=== PATIENT | male | born 1970 | race Caucasian/White ===

== ENCOUNTER 2021-07-28 07:52 | Outpatient (REF) | payer BC, SELFPAY ==
[2021-07-28 08:10] LABS: MANUAL DIFF FLAG NO
[2021-07-28 08:33] LABS: Basophils Percent Auto 0.7 % (0-2); Eosinophils Absolute Auto 0.1 X10*3/uL (0.0-0.4); Eosinophils Percent Auto 1.8 % (0-4); Hemoglobin 14.5 g/dl (14.0-18.0); Imm Gran Abs Auto 0.02 X10*3/uL (0.00-0.03); Imm Gran Pct Auto 0.5 % (0.0-0.4); Lymphocytes Percent Auto 23.3 % (20-40); Mean Corpuscular Hemoglobin 30.3 pg (27.0-33.0); Mean Corpuscular Volume 91.9 fL (80.0-98.0); Mean Platelet Volume 9.4 fL (9.4-12.4); Monocytes Absolute Auto 0.4 X10*3/uL (0.1-1.2); Monocytes Percent Auto 9.9 % (2-11); Neutrophils Absolute Auto 2.8 x10*3/uL (2.0-8.3); Neutrophils Percent Auto 63.8 % (45-73); Platelet Count 191 X10*3/uL (160-400); Red Blood Count 4.79 X10*6/uL (4.60-5.80); White Blood Count 4.3 X10*3/uL (4.8-10.8)
[2021-07-28 09:10] LABS: Alanine Aminotransferase 37 U/L (0-40); Albumin Level 4.1 g/dL (3.5-5.0); Alkaline Phosphatase 82 U/L (39-117); Anion Gap 10 (12-20); Aspartate Amino Transferase 23 U/L (5-37); Bilirubin Total 0.4 mg/dL (0.0-1.0); Blood Urea Nitrogen 20 mg/dL (9-16); Calcium 9.1 mg/dL (8.4-10.2); Carbon Dioxide 30 mmol/L (22-29); Chloride 108 mmol/L (96-108); Cholesterol 135 mg/dL; Estimated Glomerular Filt Rate > 60; Glucose Fasting 104 mg/dL (60-99); HDL Cholesterol 36 mg/dL; LDL Cholesterol Calculated 85 mg/dl; Potassium 4.7 mmol/L (3.3-5.1); Sodium 143 mmol/L (135-145); Total Protein 6.3 g/dL (6.5-8.0); Triglycerides 71 mg/dL
[2021-07-28 09:31] LABS: PSA,Total (Free>4and<10) 0.37 ng/mL (0.00-4.00); Thyroid Stimulating Hormone 2.08 uIU/mL (0.32-4.0); Vitamin D 25-OH Total 55.1 ng/mL (>30)
== END 2021-07-28 07:53 | disposition home or self-care (01) ==
LOC: HO.LAB 07:52
PROVIDERS: PCP Internal Medicine; Visit Provider Internal Medicine
DX: Z00.00 Encounter for general adult medical examination without abnormal findings (principal); I25.10 Atherosclerotic heart disease of native coronary artery without angina pectoris; I10 Essential (primary) hypertension; E78.00 Pure hypercholesterolemia, unspecified; J45.40 Moderate persistent asthma, uncomplicated; Z12.5 Encounter for screening for malignant neoplasm of prostate
CPT/HCPCS: 36415; 80053; 80061; 82306; 84153; 84443; 85025

== ENCOUNTER 2022-05-07 13:48 | Outpatient (REF) | payer BC, SELFPAY | END 2022-05-07 13:49 | disposition home or self-care (01) | LOC: HO.LAB 13:48 | PROVIDERS: PCP Internal Medicine; Visit Provider Internal Medicine | DX: Z13.89 Encounter for screening for other disorder (principal) ==

== ENCOUNTER 2022-07-30 08:19 | Outpatient (REF) | payer BC, SELFPAY ==
[2022-07-30 08:36] LABS: MANUAL DIFF FLAG NO
[2022-07-30 09:08] LABS: Basophils Percent Auto 0.4 % (0-2); Eosinophils Absolute Auto 0.2 X10*3/uL (0.0-0.4); Eosinophils Percent Auto 3.5 % (0-4); Hematocrit 42.5 % (42.0-52.0); Hemoglobin 14.7 g/dl (14.0-18.0); Imm Gran Abs Auto 0.01 X10*3/uL (0.00-0.03); Imm Gran Pct Auto 0.2 % (0.0-0.4); Lymphocytes Absolute Auto 1.2 X10*3/uL (1.2-4.9); Mean Corpuscular HGB Conc 34.6 g/dl (31.0-36.0); Mean Corpuscular Hemoglobin 31.5 pg (27.0-33.0); Mean Platelet Volume 9.6 fL (9.4-12.4); Monocytes Absolute Auto 0.4 X10*3/uL (0.1-1.2); Monocytes Percent Auto 8.2 % (2-11); Neutrophils Absolute Auto 2.9 x10*3/uL (2.0-8.3); Neutrophils Percent Auto 61.7 % (45-73); Platelet Count 181 X10*3/uL (160-400); Red Blood Count 4.67 X10*6/uL (4.60-5.80); Red Cell Distribution Width 12.3 % (11.0-16.0); White Blood Count 4.6 X10*3/uL (4.8-10.8)
[2022-07-30 09:20] LABS: Cholesterol 147 mg/dL; HDL Cholesterol 39 mg/dL; LDL Cholesterol Calculated 91 mg/dl; Triglycerides 87 mg/dL
[2022-07-30 09:30] LABS: Alanine Aminotransferase 49 U/L (0-40); Alkaline Phosphatase 91 U/L (39-117); Anion Gap 15 (12-20); Aspartate Amino Transferase 32 U/L (5-37); Bilirubin Total 0.6 mg/dL (0.0-1.0); Blood Urea Nitrogen 17 mg/dL (9-16); Calcium 9.1 mg/dL (8.4-10.2); Carbon Dioxide 26 mmol/L (22-29); Chloride 106 mmol/L (96-108); Estimated Glomerular Filt Rate > 60; Glucose Fasting 107 mg/dL (60-99); Potassium 4.6 mmol/L (3.3-5.1); Sodium 142 mmol/L (135-145); Total Protein 6.5 g/dL (6.5-8.0)
[2022-07-30 09:43] LABS: Thyroid Stimulating Hormone 2.13 uIU/mL (0.32-4.0); Vitamin D 25-OH Total 28.8 ng/mL (>30)
== END 2022-07-30 08:20 | disposition home or self-care (01) ==
LOC: HO.LAB 08:19
PROVIDERS: Absent Provider Nurse Practitioner; PCP Internal Medicine; Visit Provider Internal Medicine
DX: I25.118 Atherosclerotic heart disease of native coronary artery with other forms of angina pectoris (principal); J45.40 Moderate persistent asthma, uncomplicated; E55.9 Vitamin D deficiency, unspecified; K21.9 Gastro-esophageal reflux disease without esophagitis; E78.00 Pure hypercholesterolemia, unspecified; I10 Essential (primary) hypertension
CPT/HCPCS: 36415; 80053; 80061; 82306; 84443; 85025

== ENCOUNTER 2022-10-05 07:38 | Day surgery (SDC) | payer BC, SELFPAY ==
--- NOTE | 2022-10-04 10:33 | HO.ANESPROP2 ---
Documented by User: Yuliana Leon NP 10/04/22 12:03 HPI - Anesthesia Eval Consult details Narrative: 52yo M for Colonoscopy Pt denies any recent CP/SOB with >4 mets. CAD s/p stent 2020. Stable [facility] Past Medical History Medical History (Updated 10/04/22 @ 06:34 by Taylor Plaza RN) Asthma CAD (coronary artery disease) Cervical disc disease COPD (chronic obstructive pulmonary disease) Elevated cholesterol GERD (gastroesophageal reflux disease) Paralyzed hemidiaphragm Surgical History Surgical History (Updated 10/04/22 @ 06:35 by Taylor Plaza RN) History of lobectomy of lung Hx of appendectomy Hx of colonoscopy Hx of heart artery stent Hx of myringotomy Social History Social History Patient Tobacco Use Status: Former Tobacco user Quit Date: quit 22 years ago Use of substances other than those prescribed or required for medical reasons: No Are you DNR?: No Advance Directives: No Advance Directives Information Provided: Yes Meds Allergies Allergy/AdvReac Type Severity Reaction Status Date / Time morphine Allergy Unknown Verified 09/06/14 00:00 Home Medications Medication Instructions Recorded Confirmed Last Taken Type albuterol sulfate 90 mcg/actuation 2 puff inhalation Q4-6H PRN 10/04/22 10/04/22 Unknown History aerosol inhaler Shortness Of Breath Or Wheezing ascorbic acid (vitamin C) 125 mg 125 mg PO DAILY 10/04/22 10/04/22 Unknown History chewable tablet (Vitamin C) aspirin 81 mg tablet 81 mg PO DAILY 10/04/22 10/04/22 Unknown History atorvastatin 40 mg tablet 1 tab PO DAILY 10/04/22 10/04/22 Unknown History budesonide-formoterol HFA 80 2 puff inhalation BID 10/04/22 10/04/22 Unknown History mcg-4.5 mcg/actuation aerosol inhaler (Symbicort) famotidine 20 mg tablet 1 tab PO BID 10/04/22 10/04/22 Unknown History fluticasone fur. 100 mcg-umeclid 1 puff inhalation DAILY 10/04/22 10/04/22 Unknown History 62.5 mcg-vilant 25 mcg inhalat.powder (Trelegy Ellipta) ibuprofen 800 mg tablet 1 cap PO TID PRN Pain 10/04/22 10/04/22 Unknown History isosorbide mononitrate 30 mg 1 tab PO DAILY 10/04/22 10/04/22 Unknown History tablet,extended release 24 hr lisinopril 10 mg tablet 1 tab PO DAILY 10/04/22 10/04/22 Unknown History btanrzap-epvrzjcdt-wnqlhqjce 3.5 5 drp otic (ears) BID 10/04/22 10/04/22 Unknown History mg/mL-10,000 unit/mL-1 % ear solution omeprazole 20 mg capsule,delayed 1 cap PO DAILY 10/04/22 10/04/22 Unknown History release tiotropium bromide 2.5 2 puff inhalation DAILY 10/04/22 10/04/22 Unknown History mcg/actuation mist for inhalation (Spiriva Respimat) Exam Exam Date and Time: October 04, 2022 1033 Pertinent Lab Results Pertinent Lab Results: Laboratory Tests 07/30/22 07/30/22 08:33 08:33 WBC 4.6 L Hgb 14.7 Hct 42.5 Plt Count 181 Sodium 142 Potassium 4.6 Chloride 106 Carbon Dioxide 26 BUN 17 H Creatinine 0.92 Assessment and Plan Assessment Anesthesia Assessment: Chart Reviewed Documented by User: Lilian Stewart MD 10/05/22 08:31 [facility] Past Medical History Medical History (Updated 10/04/22 @ 06:34 by Taylor Plaza RN) Asthma CAD (coronary artery disease) Cervical disc disease COPD (chronic obstructive pulmonary disease) Elevated cholesterol GERD (gastroesophageal reflux disease) Paralyzed hemidiaphragm Family History Family history of problems with anesthesia: No Surgical History Surgical History (Updated 10/04/22 @ 06:35 by Taylor Plaza RN) History of lobectomy of lung Hx of appendectomy Hx of colonoscopy Hx of heart artery stent Hx of myringotomy History of Problems with Anesthesia: No Social History Social History Patient Tobacco Use Status: Former Tobacco user Quit Date: quit 22 years ago Use of substances other than those prescribed or required for medical reasons: No Are you DNR?: No Advance Directives: No Advance Directives Information Provided: Yes Meds Allergies Allergy/AdvReac Type Severity Reaction Status Date / Time morphine Allergy Unknown Verified 09/06/14 00:00 Home Medications Medication Instructions Recorded Confirmed Last Taken Type albuterol sulfate 90 mcg/actuation 2 puff inhalation Q4-6H PRN 10/04/22 10/04/22 Unknown History aerosol inhaler Shortness Of Breath Or Wheezing ascorbic acid (vitamin C) 125 mg 125 mg PO DAILY 10/04/22 10/04/22 Unknown History chewable tablet (Vitamin C) aspirin 81 mg tablet 81 mg PO DAILY 10/04/22 10/04/22 Unknown History atorvastatin 40 mg tablet 1 tab PO DAILY 10/04/22 10/04/22 Unknown History budesonide-formoterol HFA 80 2 puff inhalation BID 10/04/22 10/04/22 Unknown History mcg-4.5 mcg/actuation aerosol inhaler (Symbicort) famotidine 20 mg tablet 1 tab PO BID 10/04/22 10/04/22 Unknown History fluticasone fur. 100 mcg-umeclid 1 puff inhalation DAILY 10/04/22 10/04/22 Unknown History 62.5 mcg-vilant 25 mcg inhalat.powder (Trelegy Ellipta) ibuprofen 800 mg tablet 1 cap PO TID PRN Pain 10/04/22 10/04/22 Unknown History isosorbide mononitrate 30 mg 1 tab PO DAILY 10/04/22 10/04/22 Unknown History tablet,extended release 24 hr lisinopril 10 mg tablet 1 tab PO DAILY 10/04/22 10/04/22 Unknown History nqnqqape-lidjflprw-ocqlrbvha 3.5 5 drp otic (ears) BID 10/04/22 10/04/22 Unknown History mg/mL-10,000 unit/mL-1 % ear solution omeprazole 20 mg capsule,delayed 1 cap PO DAILY 10/04/22 10/04/22 Unknown History release tiotropium bromide 2.5 2 puff inhalation DAILY 10/04/22 10/04/22 Unknown History mcg/actuation mist for inhalation (Spiriva Respimat) Exam Airway Mallampati Class: II TM Dist: >3cm Neck ROM: Full Heart: rrr Lungs: cta Assessment and Plan Assessment Anesthesia Assessment: Anesthesia Plan Discussed Final Anesthetic Review Family History of Problems with Anesthesia: No History of Problems with Anesthesia: No NPO: Yes ASA Class: III Final Preanesthetic Review: No Changes in Pt Med Stat, Meds/Allgs Chart Reviewed, Consent Obtained/Reviewed and Anes Risks/Benef Reviewed Patient Risk: Low Procedure Risk: Low Anesthetic Plan Anesthetic Plan: MAC: and Agree w/ Assess. and Plan Disposition: Standard PACU
[2022-10-05 07:55] VITALS: BMI 36.5
[2022-10-05 08:29] VITALS: BP 121/77; PULSE 79; RESP 18; TEMP 36.3; O2SAT 95
[2022-10-05] MEDS: Lactated Ringers 1,000 ML 100 ML IVCONT (08:38)
--- NOTE | 2022-10-05 08:41 | MHC.SHP ---
Pre-Procedural Eval Section A Date of Service: 10/05/22 Section B Chief Complaint: Change in bowel habit Details of Present Illness: see H&P no changes Relevant Family History (Specify if Yes): No Relevant Social History: None Present Medications: see Short Stay Collaborative assessment Medical History: No relevant PMH History of Previous Operations: No relevant previous surgery Allergies: Allergies Allergy/AdvReac Type Severity Reaction Status Date / Time morphine Allergy Unknown Verified 09/06/14 00:00 Review of Systems Sugical H&P ROS: Negative: Constitution, Cardiovascular, Respiratory, Neurological, Psychiatric, Hem-Onc, Allergic/Immunologic, Gastrointestinal, Genitourinary, Musculoskeletal, Integumentary, Endocrine and Eyes/Ears/Nose/Throat Exam Surgical H&P Exam: Normal: HEENT, Normal: Heart, Normal: Lungs, Normal: Extremities, Normal: Abdomen, Normal: Skin and Normal: Neurological Plan Diagnosis/Plan: Unchanged I have reviewed the history and physical and performed a pertinent physical examination on my patient. No changes have occurred unless specified. Time Spent With Patient Time: Total time managing care of this patient today ____ minutes.
--- NOTE | 2022-10-05 09:18 | PM.OP ---
Brief Operative Note Date of Service: 10/05/22 Pre-op diagnosis: change in bowels Post-op diagnosis: same Procedure: colonoscopy Surgeon: Juan Herrera Anesthesia: MAC Was an Seat Covers Trimmer used for this Procedure?: No Estimated blood loss (mL): 2 Pathology: other Condition: stable Disposition: PACU
[2022-10-05 09:19] VITALS: BP 97/56; PULSE 78; RESP 18; TEMP 36.8; O2SAT 99
[2022-10-05 09:34] VITALS: BP 132/86; PULSE 72; RESP 16; TEMP 36.8; O2SAT 93
--- NOTE | 2022-10-05 09:38 | OP_ITS ---
SURGEON: Juan Herrera MD INDICATIONS: Change in bowel habits. PREOPERATIVE DIAGNOSIS: POSTOPERATIVE DIAGNOSIS: PROCEDURE PERFORMED: Colonoscopy to the terminal ileum with biopsy. ESTIMATED BLOOD LOSS: COMPLICATIONS: ANESTHESIA: Monitored anesthesia care. ASSISTANTS: SPECIMENS: DESCRIPTION OF PROCEDURE: Date: 10/05/22. A history and physical was performed. The risks and benefits of the procedure were explained to the patient. Informed consent was obtained. The patient was placed in the left lateral decubitus position. A digital rectal exam was performed and was found to be normal. The Olympus pediatric video colonoscope was introduced into the rectum and advanced to the cecum. The cecum was identified by transillumination, palpation, and identification of ileocecal valve. Examination was performed. The scope was removed. He tolerated the procedure well and was returned to the recovery in stable condition. FINDINGS: The terminal ileum was normal. The visualized colonic mucosa was normal. The quality of prep was good. Random sigmoid biopsies were obtained because of the patient's change in bowel habits. No colitis was identified. Retroflexed examination showed small internal hemorrhoids. IMPRESSION: Normal colonoscopy. RECOMMENDATION: 1. Follow up biopsy results. 2. Repeat colonoscopy is recommended in 10 years for average risk individuals. MD GRACIELA Balderrama/FLOYD / [id number] MTDD
[2022-10-05 09:48] VITALS: BP 139/85; PULSE 68; RESP 16; TEMP 36.8; O2SAT 95
== END 2022-10-05 10:15 | disposition home or self-care (01) ==
PROVIDERS: PCP Internal Medicine; Visit Provider Internal Medicine Gastroenterology
PROC: 0DJD8ZZ Inspection of Lower Intestinal Tract, Via Natural or Artificial Opening Endoscopic (ICD-10-PCS; CPT 45378; principal; 2022-10-05 08:50)
DX: R19.4 Change in bowel habit (principal); K64.8 Other hemorrhoids; K21.9 Gastro-esophageal reflux disease without esophagitis; E78.00 Pure hypercholesterolemia, unspecified; J44.9 Chronic obstructive pulmonary disease, unspecified; I25.10 Atherosclerotic heart disease of native coronary artery without angina pectoris; Z98.61 Coronary angioplasty status; Z79.51 Long term (current) use of inhaled steroids; Z79.899 Other long term (current) drug therapy; Z88.8 Allergy status to other drugs, medicaments and biological substances; Z98.890 Other specified postprocedural states; Z87.891 Personal history of nicotine dependence
CPT/HCPCS: 45380; 88305

== ENCOUNTER 2023-06-29 08:36 | Outpatient (REF) | payer BC, SELFPAY | END 2023-06-29 08:37 | disposition home or self-care (01) | LOC: HO.LAB 08:36 | PROVIDERS: PCP Internal Medicine; Visit Provider Internal Medicine | DX: K58.0 Irritable bowel syndrome with diarrhea (principal); K21.9 Gastro-esophageal reflux disease without esophagitis; I25.10 Atherosclerotic heart disease of native coronary artery without angina pectoris; I10 Essential (primary) hypertension; E78.00 Pure hypercholesterolemia, unspecified | CPT/HCPCS: 36415; 80061; 82947; 85025 ==

== ENCOUNTER 2024-02-14 06:16 | Outpatient (REF) | payer BC, SELFPAY ==
[2024-02-14 06:25] LABS: MANUAL DIFF FLAG NO
[2024-02-14 07:43] LABS: Basophils Percent Auto 0.6 % (0-2); Eosinophils Absolute Auto 0.1 X10*3/uL (0.0-0.4); Eosinophils Percent Auto 2.5 % (0-4); Hematocrit 41.4 % (42.0-52.0); Imm Gran Abs Auto 0.02 X10*3/uL (0.00-0.03); Imm Gran Pct Auto 0.4 % (0.0-0.4); Lymphocytes Absolute Auto 1.5 X10*3/uL (1.2-4.9); Lymphocytes Percent Auto 28.4 % (20-40); Mean Corpuscular HGB Conc 33.8 g/dl (31.0-36.0); Mean Corpuscular Hemoglobin 31.3 pg (27.0-33.0); Mean Corpuscular Volume 92.4 fL (80.0-98.0); Mean Platelet Volume 9.8 fL (9.4-12.4); Monocytes Absolute Auto 0.5 X10*3/uL (0.1-1.2); Monocytes Percent Auto 9.4 % (2-11); Neutrophils Absolute Auto 3.1 x10*3/uL (2.0-8.3); Neutrophils Percent Auto 58.7 % (45-73); Platelet Count 196 X10*3/uL (160-400); Red Blood Count 4.48 X10*6/uL (4.60-5.80); Red Cell Distribution Width 12.6 % (11.0-16.0); White Blood Count 5.2 X10*3/uL (4.8-10.8)
[2024-02-14 08:18] LABS: Alanine Aminotransferase 51 U/L (0-40); Albumin Level 3.9 g/dL (3.5-5.0); Alkaline Phosphatase 69 U/L (39-117); Anion Gap 12 (12-20); Aspartate Amino Transferase 31 U/L (5-37); Bilirubin Total 0.3 mg/dL (0.0-1.0); Blood Urea Nitrogen 16 mg/dL (9-16); Calcium 9.3 mg/dL (8.4-10.2); Carbon Dioxide 28 mmol/L (22-29); Chloride 107 mmol/L (96-108); Cholesterol 119 mg/dL (<200); Estimated Glomerular Filt Rate > 60; Glucose Fasting 118 mg/dL (60-99); HDL Cholesterol 33 mg/dL (>40); LDL Cholesterol Calculated 63 mg/dL (<100); Sodium 143 mmol/L (135-145); Total Protein 6.6 g/dL (6.5-8.0); Triglycerides 117 mg/dL (<150)
== END 2024-02-14 06:17 | disposition home or self-care (01) ==
LOC: HO.LAB 06:16
PROVIDERS: PCP Internal Medicine; Visit Provider Internal Medicine
DX: I25.10 Atherosclerotic heart disease of native coronary artery without angina pectoris (principal); I10 Essential (primary) hypertension; E78.00 Pure hypercholesterolemia, unspecified
CPT/HCPCS: 36415; 80053; 80061; 85025

== ENCOUNTER 2024-08-25 06:53 | Outpatient (REF) | payer BC, SELFPAY ==
[2024-08-25 07:09] LABS: MANUAL DIFF FLAG NO
[2024-08-25 07:34] LABS: Basophils Percent Auto 0.4 % (0-2); Eosinophils Absolute Auto 0.2 X10*3/uL (0.0-0.4); Eosinophils Percent Auto 3.3 % (0-4); Hematocrit 42.3 % (42.0-52.0); Hemoglobin 14.1 g/dl (14.0-18.0); Imm Gran Abs Auto 0.02 X10*3/uL (0.00-0.03); Imm Gran Pct Auto 0.4 % (0.0-0.4); Lymphocytes Absolute Auto 1.1 X10*3/uL (1.2-4.9); Lymphocytes Percent Auto 24.1 % (20-40); Mean Corpuscular HGB Conc 33.3 g/dl (31.0-36.0); Mean Corpuscular Hemoglobin 30.2 pg (27.0-33.0); Mean Corpuscular Volume 90.6 fL (80.0-98.0); Mean Platelet Volume 9.5 fL (9.4-12.4); Monocytes Absolute Auto 0.4 X10*3/uL (0.1-1.2); Monocytes Percent Auto 8.6 % (2-11); Neutrophils Absolute Auto 2.9 x10*3/uL (2.0-8.3); Neutrophils Percent Auto 63.2 % (45-73); Platelet Count 183 X10*3/uL (160-400); Red Blood Count 4.67 X10*6/uL (4.60-5.80); Red Cell Distribution Width 12.6 % (11.0-16.0); White Blood Count 4.5 X10*3/uL (4.8-10.8)
[2024-08-25 08:02] LABS: Alanine Aminotransferase 63 U/L (0-40); Alkaline Phosphatase 75 U/L (39-117); Anion Gap 12 (12-20); Aspartate Amino Transferase 45 U/L (5-37); Bilirubin Total 0.4 mg/dL (0.0-1.0); Blood Urea Nitrogen 16 mg/dL (9-16); Calcium 9.5 mg/dL (8.4-10.2); Carbon Dioxide 27 mmol/L (22-29); Chloride 107 mmol/L (96-108); Cholesterol 123 mg/dL (<200); Estimated Glomerular Filt Rate > 60; Glucose Fasting 113 mg/dL (60-99); HDL Cholesterol 39 mg/dL (>40); LDL Cholesterol Calculated 53 mg/dL (<100); Potassium 4.1 mmol/L (3.3-5.1); Sodium 142 mmol/L (135-145); Total Protein 6.6 g/dL (6.5-8.0); Triglycerides 159 mg/dL (<150)
[2024-08-25 08:16] LABS: PSA,Total (Free>4and<10) 0.37 ng/mL (0.00-4.00)
[2024-08-25 08:18] LABS: Thyroid Stimulating Hormone 3.91 uIU/mL (0.32-4.0)
== END 2024-08-25 06:54 | disposition home or self-care (01) ==
LOC: HO.LAB 06:53
PROVIDERS: PCP Internal Medicine; Referring Provider Nurse Practitioner Family; Visit Provider Internal Medicine
DX: Z00.00 Encounter for general adult medical examination without abnormal findings (principal); I25.10 Atherosclerotic heart disease of native coronary artery without angina pectoris; I48.0 Paroxysmal atrial fibrillation; E78.00 Pure hypercholesterolemia, unspecified; E55.9 Vitamin D deficiency, unspecified; J45.40 Moderate persistent asthma, uncomplicated; K21.9 Gastro-esophageal reflux disease without esophagitis; Z12.5 Encounter for screening for malignant neoplasm of prostate
CPT/HCPCS: 36415; 80053; 80061; 82306; 84153; 84443; 85025

== ENCOUNTER 2024-11-04 16:12 | Outpatient (AMB) | payer BC, SELFPAY ==
--- NOTE | 2024-11-04 16:17 | A.OFFPC_ITS ---
Vital Signs 11/04/24 16:24 Height 5 ft 6 in Weight 265 lb BMI 42.8 BP 122/68 Blood Pressure Location Rt brachial Pulse 79 Pulse Source Pulse Oximeter Temp 97.9 F Pulse Oximetry (%) 94 Intake Visit Reasons: 2 month follow up Intake Note: left side of throat hurts feels a dime size lump and it's tender to touch Allergies morphine Allergy (Unknown, Verified 11/04/24 16:57) Hives Medication List - Last Reconciled 11/04/24 by Nilda Washington PA-C albuterol sulfate 90 mcg/actuation 2 puffs inhalation Q4-6H PRN apixaban (Eliquis) 5 mg PO BID aspirin 81 mg PO DAILY cholecalciferol (vitamin D3) 25 mcg PO DAILY diltiazem HCl ER 120 mg PO ONCE famotidine 1 tab PO BID ytrzpfipdgj-vbixymlej-ledvipuc 100-62.5-25 mcg (Trelegy Ellipta) 1 puff inhalation DAILY ibuprofen 800 mg PO Q8H PRN isosorbide mononitrate ER 60 mg PO DAILY lisinopril 1 tab PO DAILY ooqqjlzn-plpsivlnq-TM 3.5-10,000-1 mg/mL-unit/mL-% 5 drps otic (ears) BID nitroglycerin 0.4 mg sublingual Q5M PRN rosuvastatin 40 mg PO DAILY PFSH Medical History Lump in neck Undescended right testicle Paroxysmal atrial fibrillation IBS (irritable bowel syndrome) History of 2019 novel coronavirus disease (COVID-19) Lymphadenopathy Tendinitis Radiculopathy Chronic back pain Migraine headache Hyperlipidemia Hypertension Atypical chest pain Bronchomalacia Obstructive airway disease Paralyzed hemidiaphragm CAD (coronary artery disease) Cervical disc disease GERD (gastroesophageal reflux disease) COPD (chronic obstructive pulmonary disease) Asthma Elevated cholesterol Surgical History Hx of colonoscopy Hx of appendectomy Hx of myringotomy History of lobectomy of lung Hx of heart artery stent Social History Patient Tobacco Use Status: Former Tobacco user Physical exam (Primary Care) Vital Signs: Last Vital Signs Temp 97.9 F 11/04/24 16:24 Pulse 79 11/04/24 16:24 BP 122/68 11/04/24 16:24 Pulse Ox 94 11/04/24 16:24 Care Plan Goal for BP management: <130/80 BMI result Body Mass Index 42.8 BMI Assessment/Plan discussion: High BMI High, discussed plan: lifestyle, weight reduction, dietary, physical activity and alcohol moderation Tobacco/Smoking Status: Tobacco use Status Patient Tobacco Use Status Former Tobacco user 11/04/24 16:22 Coding Level of Care Code New Pt Level 4 (82563) Complex EM visit Add On G2211 Diagnoses Lump in neck R22.1 Paroxysmal atrial fibrillation I48.0 IBS (irritable bowel syndrome) K58.9 Lymphadenopathy R59.1 Radiculopathy M54.10 Chronic back pain M54.9; G89.29 Migraine headache G43.909 Hyperlipidemia E78.5 Hypertension I10 Obstructive airway disease J44.9 Asthma J45.909 CAD (coronary artery disease) I25.10 Cervical disc disease M50.90 GERD (gastroesophageal reflux disease) K21.9 COPD (chronic obstructive pulmonary disease) J44.9 Assessment & Plan Assessment & Plan (1) Lump in neck: Code(s): R22.1 - Localized swelling, mass and lump, neck Category: Medical Plan: To left submandibular area. Will order CT scan with IV contrast. Will continue to monitor and reassess in 1-2 months. (2) Paroxysmal atrial fibrillation: Code(s): I48.0 - Paroxysmal atrial fibrillation Category: Medical Plan: Patient currently on Eliquis 5 mg b.i.d. taking as prescribed, aspirin 81 mg daily, diltiazem extended release 120 mg daily, lisinopril, isosorbide mononitrate extended release 60 mg and p.r.n. nitroglycerin sublingual taking as prescribed. Patient being followed by Cardiology. Condition is chronic and stable continue to monitor. (3) IBS (irritable bowel syndrome): Code(s): K58.9 - Irritable bowel syndrome, unspecified Category: Medical Plan: Patient being followed by gastroenterology. Condition is chronic and stable continue to monitor. (4) Lymphadenopathy: Comment: Submandibular Code(s): R59.1 - Generalized enlarged lymph nodes Category: Medical Plan: Condition is chronic and stable continue to monitor. (5) Radiculopathy: Code(s): M54.10 - Radiculopathy, site unspecified Category: Medical Plan: Patient currently on ibuprofen 800 mg reports Cardiology knows that he is currently on ibuprofen along with aspirin and Eliquis. He does not want to switch to Tylenol he understands the risks and reports that pulp plant supervisor allow this. Condition is chronic and stable continue to monitor. (6) Chronic back pain: Code(s): M54.9 - Dorsalgia, unspecified; G89.29 - Other chronic pain Category: Medical Plan: Patient currently on ibuprofen 800 mg reports Cardiology knows that he is currently on ibuprofen along with aspirin and Eliquis. He does not want to switch to Tylenol he understands the risks and reports that pulp plant supervisor allow this. Condition is chronic and stable continue to monitor. (7) Migraine headache: Code(s): G43.909 - Migraine, unspecified, not intractable, without status migrainosus Category: Medical Plan: Condition is chronic and stable continue to monitor. (8) Hyperlipidemia: Code(s): E78.5 - Hyperlipidemia, unspecified Category: Medical Plan: Patient currently on lovastatin 40 mg daily. Condition is chronic and stable continue to monitor. (9) Hypertension: Code(s): I10 - Essential (primary) hypertension Category: Medical Plan: Patient currently on Eliquis 5 mg b.i.d. taking as prescribed, aspirin 81 mg daily, diltiazem extended release 120 mg daily, lisinopril, isosorbide mononitrate extended release 60 mg and p.r.n. nitroglycerin sublingual taking as prescribed. Patient being followed by Cardiology. Condition is chronic and stable continue to monitor. (10) Obstructive airway disease: Code(s): J44.9 - Chronic obstructive pulmonary disease, unspecified Category: Medical Plan: Condition is chronic and stable patient being followed by pulmonology. Will continue to monitor. (11) Asthma: Code(s): J45.909 - Unspecified asthma, uncomplicated Category: Medical Plan: Patient currently on albuterol inhaler, Ellipta taking as prescribed. Condition is chronic and stable will continue to monitor (12) CAD (coronary artery disease): Code(s): I25.10 - Atherosclerotic heart disease of [place] coronary artery without angina pectoris Category: Medical Plan: Patient currently on Eliquis 5 mg b.i.d. taking as prescribed, aspirin 81 mg daily, diltiazem extended release 120 mg daily, lisinopril, isosorbide mononitrate extended release 60 mg and p.r.n. nitroglycerin sublingual taking as prescribed. Patient being followed by Cardiology. Condition is chronic and stable continue to monitor. (13) Cervical disc disease: Code(s): M50.90 - Cervical disc disorder, unspecified, unspecified cervical region Category: Medical Plan: Patient currently taking ibuprofen 800 mg cardiology is aware about this with the aspirin and the Eliquis. Condition is chronic and stable. (14) GERD (gastroesophageal reflux disease): Code(s): K21.9 - Gastro-esophageal reflux disease without esophagitis Category: Medical Plan: Patient currently on Pepcid. Condition is chronic and stable continue to monitor. (15) COPD (chronic obstructive pulmonary disease): Code(s): J44.9 - Chronic obstructive pulmonary disease, unspecified Category: Medical Plan: Patient currently on inhalers. Condition is chronic and stable continue to monitor. Plan Plan - Continue current medications as prescribed. - Start using the prescribed ear drops as needed for otic symptoms. - Attend the CT scan as scheduled once contacted, and request a concurrent hemoglobin A1c test. - Follow dietary recommendations to include more avocados, salads, and less sugary foods. - Attend follow-up telehealth appointment in one month to review results and adjust treatment as necessary. - Report any worsening symptoms or new concerns promptly. Orders: Orders CT soft tissue neck w IV con Today R22.1 - Localized swelling, mass and lump, neck Hemoglobin A1c Today Z00.00 - Encounter for general adult medical examination without abnormal findings Medications: New hydrocortisone 2.5% 1 appl topical BID-QID PRN 28.35 grams 5RF rash nuttbylt-beiflerei-QP 3.5-10,000-1 mg/mL-unit/mL-% 5 drps otic (ears) BID 10 mL 3RF Patient Instructions: Patient Instructions - Continue current medications as prescribed. - Start using the prescribed ear drops as needed for otic symptoms. - Attend the CT scan as scheduled once contacted, and request a concurrent hemoglobin A1c test. - Follow dietary recommendations to include more avocados, salads, and less sugary foods. - Attend follow-up telehealth appointment in one month to review results and adjust treatment as necessary. - Report any worsening symptoms or new concerns promptly. Scribe Plan - Not visible on output: History of Present Illness The patient is a 54-year-old male presenting with a follow-up for management of multiple chronic conditions. He has a history of atrial fibrillation, hypertension, coronary artery disease, hyperlipidemia, obstructive airway disease, and cervical disc disease. His medication regimen includes Eliquis for atrial fibrillation, lisinopril for hypertension, and rosuvastatin for hyperlipidemia. He is also managing GERD with Pepcid. The patient reports using ibuprofen 800 mg as needed for pain due to a cervical sprain and disc herniations, despite being on Eliquis, as his pulp plant supervisor is aware of this regimen during non-procedural times. His cervical condition is associated with radiculopathy symptoms. He also reports a history of chronic back pain and migraine headaches, which are being monitored. He recently had a colonoscopy in 2022 which showed polyps, managed by a respiratory therapy director. There is concern for potential diabetes as it runs in his family, with fasting blood glucose being previously documented around 113. A left neck lump was noted, and the patient feels a palpable lymph node that has been previously examined by a social media intern. Social History - Exercise and nutrition: The patient has lost approximately 13-14 pounds recently and is making dietary changes to incorporate healthier foods like salads and avocados. - Weight management: His weight is currently at 265 pounds, down from 278 pounds. - Family medical history: Diabetes runs in the patient's family. Review of Systems - Skin: Reports dryness. - Cardiovascular: Reports a lump sensation in the left neck. - Gastrointestinal: Reports chronic back pain; denies issues with eating or bowel movements. - Neurological: Reports migraine headaches. Physical Exam Appearance: Alert. Oriented X3. No acute distress. Head: Normal external exam. Normocephalic. Atraumatic. Eyes: Pupils are equal, round, and reactive to light. Extraocular movements intact. Conjunctiva and sclera normal. Eyelids normal. Ears: External auditory canal normal. Tympanic membranes normal. Scars noted from previous ear tube surgery. Throat: Pharynx normal. Uvula midline. Moist mucous membranes. Left neck lump noted, possibly a lymph node. Neck: Normal inspection. Neck supple. Full range of motion. No adenopathy. Thyroid Normal. No meningeal signs. Left neck lump noted, possibly not a lymph node. Cardiovascular: Normal heart rate and rhythm. Heart sound normal. No murmurs noted. Pulses normal throughout. Respiratory: No respiratory distress. Painless inspiration. Breath sounds normal. No wheezes/rales/rhonchi noted. Chest nontender. No accessory muscle usage noted or decreased air movement noted. Abdomen: Soft and nontender. Bowel sounds normal in all 4 quadrants. No distention noted. No organomegaly noted. No visible injury noted. Back: No costovertebral angle tenderness. Full range of motion noted. Skin: Skin warm and dry. Normal skin color. Normal skin turgor. No rashes/lesions/lacerations noted. History of using hydrocortisone ointment for skin dryness. Extremities: No lower extremity edema. Extremities exhibit normal range of motion. Extremities nontender. Neuro: Oriented X 3. No motor deficit. No sensory deficit. Reflexes normal. Results - Labs: Previous blood tests showed mildly elevated liver enzymes and triglycerides. Fasting blood glucose was noted around 113. White blood cell count was slightly low. - Imaging: Ultrasound of left neck lump was done but no definitive results were communicated to the patient. - Procedures: PSA and thyroid function tests were normal. Plan - Continue current medications as prescribed. - Start using the prescribed ear drops as needed for otic symptoms. - Attend the CT scan as scheduled once contacted, and request a concurrent hemoglobin A1c test. - Follow dietary recommendations to include more avocados, salads, and less sugary foods. - Attend follow-up telehealth appointment in one month to review results and adjust treatment as necessary. - Report any worsening symptoms or new concerns promptly. Patient was informed and verbally consented to the use of an ambient scribe for clinic note documentation during this visit. Discussion Notes During the consultation, I discussed the patient's current medications and management plan for his chronic conditions, notably his atrial fibrillation, hypertension, and hyperlipidemia. The potential risks of using ibuprofen in conjunction with blood thinners were reviewed, and it was confirmed the pulp plant supervisor is aware of this regimen. For his elevated triglycerides, I recommend dietary modifications and exercise. I proposed a CT scan for the left neck lump to understand its etiology and reassured the patient about the test. Potential diabetes was a concern based on his family history and fasting glucose levels, so I advised obtaining an A1c test. We agreed on a one-month follow-up via telehealth to discuss forthcoming results and adjustments to his regimen. Patient Instructions - Continue current medications as prescribed. - Start using the prescribed ear drops as needed for otic symptoms. - Attend the CT scan as scheduled once contacted, and request a concurrent hemoglobin A1c test. - Follow dietary recommendations to include more avocados, salads, and less sugary foods. - Attend follow-up telehealth appointment in one month to review results and adjust treatment as necessary. - Report any worsening symptoms or new concerns promptly.
[2024-11-04 16:24] VITALS: BP 122/68; PULSE 79; TEMP 36.6; O2SAT 94; BMI 42.8
--- OUTSIDE RECORDS SUMMARY | 2024-11-04 16:39 | XMS_ITS ---
Author Organization Andres Dejesus DO, [facility] Address [address], [place] [id number] Care Team Providers Care Radiopharmacist Name Role Phone Andres Dejesus Primary Care Provider [phone] REASON FOR VISIT 2 month f/u SOCIAL HISTORY Sex Assigned At : Social History Observation Description Sex Assigned At Male Encounters Encounter Location Date Provider Diagnosis Andres Dejesus DO, FACP [address] [place] [address] [phone] 11/04/2024 Andres Dejesus PLAN OF TREATMENT No Information
--- OUTSIDE RECORDS SUMMARY | 2024-11-04 16:39 | XMS_ITS ---
Author Organization Andres Dejesus DO [facility] Address [address], [place] [id number] Care Team Providers Care Director Web Name Role Phone Anjelica Andres Primary Care Provider [phone] REASON FOR VISIT Message MEDICATIONS Medication SIG (Take, Route, Fr equency, Duration) Notes Start Date End Date Status Amoxicillin 500 MG 1 capsule Orally Thr ee times a day for 7 days 06/09/2024 Active SOCIAL HISTORY Sex Assigned At : Social History Observation Description Sex Assigned At Male Encounters Encounter Location Date Provider Diagnosis Andres Dejesus DO, FACP [address], [place] [id number] 06/09/2024 Andres Dejesus PLAN OF TREATMENT Medication Medication Name Sig Start Date Stop Date Notes Amoxicillin 500 MG 1 capsule Orally Thr ee times a day for 7 days 06/09/2024
--- OUTSIDE RECORDS SUMMARY | 2024-11-04 16:39 | XMS_ITS ---
Author Organization Andres Dejesus DO, FAC Address [address] [place], [place] [id number] Care Team Providers Care Stores Despatch Hand Name Role Phone Andres Dejesus Primary Care Provider [phone] ALLERGIES Allergen (clinical drug ingredient) Drug/Non Drug Allergy documented on EMR Reaction Allergy Type Onset Date Status morphine Morphine Sulfate emesis Drug Allergy Active REASON FOR VISIT 6 month f/u, Follow up Coronary artery disease involving [place] coronary artery of [place] heart without angina pectoris MEDICATIONS Medication SIG (Take, Route, Frequency, Duration) Notes Start Date End Date Status Apixaban 5 MG 1 tablet Orally Twic e a day Active Lisinopril 10 MG 1 tablet Orally Once a day Active Isosorbide Mononitrate ER 60 MG 1 tablet in the morning Orally Once a day Active Nitroglycerin 0.4 MG 1 tablet under the tongue and allow to dissolve as needed. Take every 5 minutes up to 3 times if chest pain persists Sublingual Three times a day Active dilTIAZem HCl ER 120 MG 1 capsule Orally Once a day Active Trelegy Ellipta 200-62.5-25 MCG/INH 1 puff Inhalation Once a day Active Ibuprofen 800 MG 1 tablet with food o r milk as needed Orally Three times a day Active Hydrocortisone 1 % 1 application as needed Externally Twice a day Active hydroCHLOROthiazide 25 MG 1 tablet in th e morning Orally Once a day for 90 days 08/25/2024 Active Albuterol Sulfate HFA 108 (9 0 Base) MCG/ACT 2 puffs as needed Inhalation every 4 hrs Active Cholecalciferol 1000 UNIT 1 capsule Oral ly Once a day Active Aspirin Adult Low Dose 81 MG 1 tablet Or ally Once a day Active Rosuvastatin Calcium 40 MG 1 tablet Oral ly Once a day Active Omeprazole 20 MG 1 capsule 30 minutes before morning meal as needed Orally Once a day 06/20/2022 Active SOCIAL HISTORY Tobacco Use: Social History Observation Description Date Details (start date - stop date) Former Smoker NA - NA Sex Assigned At : Social History Observation Description Sex Assigned At Male Tobacco Use/Smoking Question Answer Notes Patient is a former smoker How long has it been since y ou last smoked? > 10 years Additional Findings: Tobacco Non-User Fo rmer smoker, currently using no form of tobacco Alcohol Screen Question Answer Notes Did you have a drink contain ing alcohol in the past year? Yes How often did you have a dri nk containing alcohol in the past year? Monthly or less (1 point) How many drinks did you have on a typical day when you were drinking in the past year? 1 or 2 drinks (0 point) How often did you have 6 or more drinks on one occasion in the past year? Never (0 point) Points 1 Interpretation Negative VITAL SIGNS BMI 42.44 kg/m2 08/25/2024 Blood pressure systolic 110 mm Hg 08/25/20 24 Blood pressure diastolic 70 mm Hg 024 Height 67 in 08/25/2024 Weight 271 lbs 08/25/2024 Encounters Encounter Location Date Provider Diagnosis Andres Dejesus DO, [address] [id number] 08/25/2024 Andres Dejesus Coronary artery dise ase involving [place] coronary artery of [place] heart without angina pectoris I25.10 ; Paroxysmal atrial fibrillation I48.0 ; Essential hypertension I10 ; Hypercholesterolemia E78.00 ; Vitamin D deficiency E55.9 ; Moderate persistent asthma without complication J45.40 and Gastroesophageal reflux disease without esophagitis K21.9 ASSESSMENTS Encounter Date Diagnosis Assessment Notes Treatment Notes Treatment Clinical Notes 08/25/2024 Coronary artery dise ase involving [place] coronary artery of [place] heart without angina pectoris (ICD-10 - I25.10) 08/25/2024 Paroxysmal atrial fibrillation (ICD-10 - I48.0) 08/25/2024 Essential hypertensi on (ICD-10 - I10) Weight is up. He is retaining fluid. Will begin HCTZ. 08/25/2024 Hypercholesterolemia (ICD-10 - E78.00) 08/25/2024 Vitamin D deficiency (ICD-10 - E55.9) 08/25/2024 Moderate persistent asthma without complication (ICD-10 - J45.40) 08/25/2024 Gastroesophageal ref lux disease without esophagitis (ICD-10 - K21.9) PLAN OF TREATMENT Medication Medication Name Sig Start Date Stop Date Notes Apixaban 5 MG 1 tablet Orally Twic e a day Lisinopril 10 MG 1 tablet Orally Once a day Isosorbide Mononitrate ER 60 MG 1 tablet in the morning Orally Once a day Nitroglycerin 0.4 MG 1 tablet under the tongue and allow to dissolve as needed. Take every 5 minutes up to 3 times if chest pain persists Sublingual Three times a day dilTIAZem HCl ER 120 MG 1 capsule Orally Once a day Trelegy Ellipta 200-62.5-25 MCG/INH 1 puff Inhalation Once a day Ibuprofen 800 MG 1 tablet with food o r milk as needed Orally Three times a day Hydrocortisone 1 % 1 application as nee ded Externally Twice a day hydroCHLOROthiazide 25 MG 1 tablet in morning Orally Once a day for 90 days 08/25/2024 Albuterol Sulfate HFA 108 (9 0 Base) MCG/ACT 2 puffs as needed Inhalation every 4 hrs Cholecalciferol 1000 UNIT 1 capsule Oral ly Once a day Aspirin Adult Low Dose 81 MG 1 tablet Or ally Once a day Rosuvastatin Calcium 40 MG 1 tablet Oral ly Once a day Omeprazole 20 MG 1 capsule 30 minutes before morning meal as needed Orally Once a day 06/20/2022 Treatment Notes Assessment Notes Essential hypertension Weight is up. He is retaining fluid. Will begin HCTZ. Next Appt Details Follow Up: 2 Months, Reason: follow up visit Progress Notes * Examination Category Sub-Category Detail Notes General Examination GENERAL APPEARANCE: in no ac paimiut distress, well developed, well nourished HEAD: normocephalic, atrau matic HEART: no murmurs, regular rate and rhythm, S1, S2 normal LUNGS: clear to auscultatio n bilaterally ABDOMEN: normal, bowel sounds present, soft, nontender, nondistended SKIN: warm and dry EXTREMITIES: 1+ pitting edema low er extremities PSYCH: alert, oriented, cog nitive function intact
== END 2024-11-04 16:56 | disposition home or self-care (01) ==
LOC: HO.HMCSH 16:12
PROVIDERS: PCP Internal Medicine; Visit Provider Physician Assistant Medical
DX: I48.0 Paroxysmal atrial fibrillation (principal); J44.9 Chronic obstructive pulmonary disease, unspecified; K58.9 Irritable bowel syndrome, unspecified; R59.1 Generalized enlarged lymph nodes; M54.10 Radiculopathy, site unspecified; M54.9 Dorsalgia, unspecified; G89.29 Other chronic pain; G43.909 Migraine, unspecified, not intractable, without status migrainosus; E78.5 Hyperlipidemia, unspecified; I10 Essential (primary) hypertension; J45.909 Unspecified asthma, uncomplicated; I25.10 Atherosclerotic heart disease of native coronary artery without angina pectoris

== ENCOUNTER 2024-12-17 08:05 | Outpatient (REF) | payer BC, SELFPAY ==
[2024-12-17 08:47] LABS: Estimated Average Glucose 120 mg/dL; Hemoglobin A1c % 5.8 % (<6.0)
== END 2024-12-17 08:06 | disposition home or self-care (01) ==
LOC: HO.LAB 08:05
PROVIDERS: PCP Internal Medicine; Visit Provider Physician Assistant Medical
DX: Z00.00 Encounter for general adult medical examination without abnormal findings (principal); Z13.1 Encounter for screening for diabetes mellitus
CPT/HCPCS: 36415; 83036

== ENCOUNTER 2024-12-22 11:19 | Outpatient (REF) | payer BC, SELFPAY ==
--- NOTE | ~2024-12-22 | CT_ITS ---
CLINICAL HISTORY: R22.1 - Localized swelling, mass and lump, neck CT soft tissue neck with contrast Comparison: None Findings: The visualized intracranial contents are unremarkable. There is moderate left and mild right maxillary sinus mucosal thickening. Mastoids are clear. Pharyngeal mucosal space, parapharyngeal fat, prevertebral tissues, and epiglottis are within normal limits. Salivary glands are within normal limits. No sialoliths. Thyroid gland is unremarkable. Visualized lung apices are clear. No acute fractures. IMPRESSION: 1. Sinus disease. 2. Otherwise negative examination. This document has been electronically signed by: Jose Luis Zamora MD on 12/22/2024 16:24:36
[2024-12-22] MEDS: iohexoL 350 MG/ML 100 ML INFUS..BTL IV (11:47)
[2024-12-23 13:49] LABS: Creatinine POC 0.9 mg/dL (0.5-1.4); GFR POC > 60
== END 2024-12-22 11:20 | disposition home or self-care (01) ==
LOC: HO.CT 11:19
PROVIDERS: PCP Internal Medicine; Visit Provider Physician Assistant Medical
DX: R22.1 Localized swelling, mass and lump, neck (principal)
CPT/HCPCS: 70491; 82565; Q9967

== ENCOUNTER → 2024-12-22 11:21 | Outpatient (BNV) | payer BC, SELFPAY | PROVIDERS: PCP Internal Medicine; Visit Provider Radiology Diagnostic Radiology | DX: J34.89 Other specified disorders of nose and nasal sinuses (principal) | CPT/HCPCS: 70491 ==

== ENCOUNTER 2025-01-13 16:32 | Outpatient (AMB) | payer BC, SELFPAY ==
[2025-01-13 16:30] VITALS: BP 120/70; PULSE 78; RESP 16; TEMP 36.6; O2SAT 95; BMI 41.6
--- NOTE | 2025-01-13 16:30 | A.OFFPC_ITS ---
Vital Signs 01/13/25 16:30 Height 5 ft 6 in Weight 258 lb BMI 41.6 BP 120/70 Respiration 16 Pulse 78 Pulse Source Pulse Oximeter Temp 97.9 F Temp Source Temporal Artery Scan Pulse Oximetry (%) 95 Oxygen Delivery Method Room Air Intake Visit Reasons: follow up Lump Roller Required: No Accompanied by: Self / Same As Patient Allergies morphine Allergy (Unknown, Verified 01/13/25 16:54) Hives Medication List - Last Reconciled 01/13/25 by Nilda Washington PA-C albuterol sulfate 90 mcg/actuation 2 puffs inhalation Q4-6H PRN apixaban (Eliquis) 5 mg PO BID aspirin 81 mg PO DAILY cholecalciferol (vitamin D3) 25 mcg PO DAILY diltiazem HCl ER 120 mg PO ONCE famotidine 1 tab PO BID nztknefpbij-yeaswdvvt-xflpeppv 100-62.5-25 mcg (Trelegy Ellipta) 1 puff inhalation DAILY hydrochlorothiazide 25 mg PO DAILY hydrocortisone 2.5% 1 appl topical BID-QID PRN ibuprofen 800 mg PO Q8H PRN isosorbide mononitrate ER 60 mg PO DAILY lisinopril 10 mg PO DAILY yvklihsg-ptidrhwcw-VI 3.5-10,000-1 mg/mL-unit/mL-% 5 drps otic (ears) BID nitroglycerin 0.4 mg sublingual Q5M PRN rosuvastatin 40 mg PO DAILY Tobacco use date assessed: 01/13/25 Dental Screening Dental Screen Date: 01/13/25 Did you have a dental visit in the last 12 months?: Yes Did you have a dental problem in the last 6 months where you did not have access to dental care?: No Was dental information given to patient?: Patient has dentist HPI follow up HPI Details 54-year-old male presenting to the [facility] for follow-up appointment for neck swelling/lump to the left submandibular area. He had a CT scan with IV contrast which was negative for any acute processes only revealed chronic sinus disease. He reports he is still concerned due to he still feels the lump in his neck area. He reports he has never had a thyroid ultrasound. Patient reports he is currently being followed by Dermatology and had a biopsy of a lesion to his back and has a follow-up in 1 week. Patient reports dermatology is considering biopsy the patient's fatty tissue right under his submandibular area due to he had an ultrasound done at a different location to the fatty tissue right under his submandibular area a proximally 1 year ago and it revealed enlarged lymph nodes. Although the CT scan recently done does not reveal enlarged lymph nodes. I printed out the CT scan results and asked him to bring it to his oncology social worker. Otherwise patient denies any other symptoms complaints or concerns at this time. [facility], LAT[facility] Medical History (Updated 01/13/25 @ 17:01 by Nilda Washington PA-C) Chronic sinus infection Lump in neck Undescended right testicle Paroxysmal atrial fibrillation IBS (irritable bowel syndrome) History of 2019 novel coronavirus disease (COVID-19) Lymphadenopathy Tendinitis Radiculopathy Chronic back pain Migraine headache Hyperlipidemia Hypertension Atypical chest pain Bronchomalacia Obstructive airway disease Paralyzed hemidiaphragm CAD (coronary artery disease) Cervical disc disease GERD (gastroesophageal reflux disease) COPD (chronic obstructive pulmonary disease) Asthma Elevated cholesterol Surgical History Hx of colonoscopy Hx of appendectomy Hx of myringotomy History of lobectomy of lung Hx of heart artery stent Family History Father BP (high blood pressure) CHF (congestive heart failure) Melanoma Mother Heart disease Social History Housing: House Alcohol intake: current Alcohol intake frequency: holidays/special occasions only Patient Tobacco Use Status: Former Tobacco user service: No Current occupational status: employed Cognitive needs: No Hearing needs: No Vision needs: Yes (rx glasses) Questionnaire PHQ-9 Over the last 2 weeks, how often have you been bothered by any of the following problems? 1. Little interest or pleasure in doing things: not at all 2. Feeling down, depressed, or hopeless: not at all 3. Trouble falling or staying asleep, or sleeping too much: not at all 4. Feeling tired or having little energy: not at all 5. Poor appetite or overeating: not at all 6. Feeling bad about yourself - or that you are a failure or have let yourself or your family down: not at all 7. Trouble concentrating on things, such as reading the newspaper or watching television: not at all 8. Moving or speaking so slowly that other people could have noticed. Or the opposite - being so fidgety or restless that you have been moving around a lot more than usual: not at all 9. Thoughts that you would be better off or of hurting yourself in some way: not at all Total score: 0 Depression Screening Interpretation: Negative Depression Screening Done: Yes 32580 - PHQ-9 Billing: Yes Source: Developed by Drs. Andres Thomas, Irasema Shea, Triston Mendoza and colleagues, with an educational jeannette from [employer]. Thrive Questionnaire Date Thrive assessed: 01/13/25 I am a: Patient What is your living situation today?: I have a steady place to live Within the past 12 months, did the food you bought not last and you didn't have the money to get more?: Never true Within the past 12 months, did you worry whether your food would run out before you got money to buy more?: Never true Do you have trouble paying for medicines?: No Do you have trouble getting transportation to medical appointments?: No Do you have trouble paying your heating and electricity bill?: No Do you have trouble taking care of your child, family member or friend?: No Do you have trouble with day-to-day activities such as bathing, preparing meals, shopping, managing finances, etc.?: No Are you currently unemployed and looking for a job?: No Are you interested in more education?: No Please select the resources that you would like help with: None THRIVE Score: 0 AUDIT C Alcohol Use Questionnaire (AUDIT-C) 1. How often do you have a drink containing alcohol?: Monthly or less 2. How many drinks containing alcohol do you have on a typical day when you are drinking?: 1 or 2 3. How often do you have six or more drinks on one occasion?: Never Total Score: 1 Score Reviewed/Action Taken: No CONNOR-7 AMB Questionnaire CONNOR-7 Date CONNOR - 7 assessed: 01/13/25 Feeling nervous, anxious, or on edge: 0 = Not at all Not being able to stop or control worryin = Not at all Worrying too much about different things: 0 = Not at all Trouble relaxin = Not at all Being so restless that it is hard to sit still: 0 = Not at all Becoming easily annoyed or irritable: 0 = Not at all Feeling afraid as if something awful might happen: 0 = Not at all Total CONNOR-7 score (0-4 normal; 5-9 mild; 10-14 moderate; 15-21 severe): 0 Source: Developed by Drs. Andres Thomas, Irasema Shea, rTiston Mendoza and colleagues, with an educational jeannette from [employer]. CONNOR-7 Assessment Billing CONNOR-7 Assessment Tool: CONNOR-7 Assessment 29200 Review of Systems Const Details: Patient denies any trouble swallowing or breathing, fevers or chills or any other symptoms complaints or concerns at this time. Physical exam (Primary Care) Vital Signs: Last Vital Signs Temp 97.9 F 01/13/25 16:30 Pulse 78 01/13/25 16:30 Resp 16 01/13/25 16:30 BP 120/70 01/13/25 16:30 Pulse Ox 95 01/13/25 16:30 Oxygen Delivery Method Room Air 01/13/25 16:30 Care Plan Goal for BP management: <130/90 at Goal BMI result Body Mass Index 41.6 BMI Assessment/Plan discussion: High BMI High, discussed plan: lifestyle, weight reduction, dietary, physical activity and alcohol moderation Tobacco/Smoking Status: Tobacco use Status Tobacco use date assessed 01/13/25 01/13/25 16:32 Patient Tobacco Use Status Former Tobacco user 01/13/25 16:38 PHQ-9: PHQ-9 Score PHQ-9: Total score 0 01/13/25 16:40 Depression Screening Interpretation: Negative Thrive Assessment: Date of Thrive Assessment Date Thrive assessed 01/13/25 01/13/25 16:32 Const Other: Appearance: Alert. Oriented X3. No acute distress. Head: Normal external exam. Normocephalic. Atraumatic. Eyes: Pupils are equal, round, and reactive to light. Extraocular movements intact. Conjunctiva and sclera normal. Eyelids normal. Ears: External auditory canal normal. Tympanic membranes normal. Scars noted from previous ear tube surgery. Throat: Pharynx normal. Uvula midline. Moist mucous membranes. Left neck lump noted, possibly a lymph node. Neck: Normal inspection. Neck supple. Full range of motion. No adenopathy. Thyroid Normal. No meningeal signs. Left neck lump noted, possibly not a lymph node. Cardiovascular: Normal heart rate and rhythm. Heart sound normal. No murmurs noted. Pulses normal throughout. Respiratory: No respiratory distress. Painless inspiration. Breath sounds normal. Back: No costovertebral angle tenderness. Full range of motion noted. Skin: Skin warm and dry. Normal skin color. Normal skin turgor. No rashes/lesions/lacerations noted. Extremities: No lower extremity edema. Extremities exhibit normal range of motion. Neuro: Oriented X 3. Coding Level of Care Code Est Pt Level 3 (12620) Complex EM visit Add On G2211 Diagnoses Lump in neck R22.1 Chronic sinus infection J32.9 Additional Codes PHQ-9 - 78000 - PHQ-9 Billing: Yes ([id number]) CONNOR-7 Assessment Billing - CONNOR-7 Assessment Tool: CONNOR-7 Assessment 60767 ([id number]) Assessment & Plan Assessment & Plan (1) Lump in neck: Code(s): R22.1 - Localized swelling, mass and lump, neck Category: Medical Plan: Will order thyroid ultrasound. CT scan of soft tissue neck was negative for any acute processes. Condition is chronic and stable continue to monitor. (2) Chronic sinus infection: Code(s): J32.9 - Chronic sinusitis, unspecified Category: Medical Plan: Condition is chronic and stable will continue to monitor. Plan Patient to return in 3 months. Will order thyroid ultrasound to evaluate for any acute processes due to the patient has a lump to the left side of the neck. CT scan of soft tissue neck with IV contrast was negative. Patient to continue being followed by Dermatology. Orders: Orders US thyroid Today R22.1 - Localized swelling, mass and lump, neck
== END 2025-01-13 16:59 | disposition home or self-care (01) ==
LOC: HO.HMCSH 16:32
PROVIDERS: PCP Internal Medicine; Visit Provider Physician Assistant Medical
DX: R22.1 Localized swelling, mass and lump, neck (principal); J32.9 Chronic sinusitis, unspecified

== ENCOUNTER → 2025-01-13 16:32 | Outpatient (BNVA) | payer BC, SELFPAY | PROVIDERS: PCP Internal Medicine; Visit Provider Physician Assistant Medical | DX: R22.1 Localized swelling, mass and lump, neck (principal); J32.9 Chronic sinusitis, unspecified | CPT/HCPCS: 96127 ==

== ENCOUNTER 2025-02-09 15:32 | Outpatient (REF) | payer BC, SELFPAY ==
--- NOTE | ~2025-02-09 | US_ITS ---
EXAMINATION: US THYROID HISTORY: R22.1 - Localized swelling, mass and lump, neck TECHNIQUE: Real-time grayscale ultrasound imaging was performed and images were reviewed. COMPARISON: Correlation is made with a CT of the neck with contrast dated 12/22/2024. FINDINGS: SIZE: The right thyroid lobe measures 4.2 x 1.7 x 1.5 cm. The left thyroid lobe measures 3.7 x 1.4 x 1.8 cm. The isthmus measures 3 mm. FLOW: Flow to the gland is normal. ECHOGENICITY: The echotexture of the gland is homogeneous. NODULES: Subcentimeter left thyroid nodules are identified as described below: Nodule #: 1 Location: Left upper pole measuring 8 x 6 x 7 mm. Shape: Wider than tall (0 points) Margins: Smooth (0 points) Echotexture: Hypoechoic (2 points) Composition: Solid (2 points) Calcifications: None (0 points) Total points: 4 TIRADS: TR4: Moderately suspicious. Nodule #: 2 Location: Left lower pole measuring 9 x 8 x 9 mm. Shape: Round (0 points) Margins: Smooth (0 points) Echotexture: Isoechoic (1 point) Composition: Solid (2 points) Calcifications: None (0 points) Total points: 3 TIRADS: TR3: Mildly suspicious. Incidental note is made of nonenlarged lymph nodes in the left submandibular region. US/US thyroid IMPRESSION: Subcentimeter left thyroid nodules as described. According to the ACR TI-RADS guidelines below, no additional workup is advised. ACR TI-RADS Guidelines TR1 (0 points): Benign, No follow-up or biopsy required TR2 (2 points): Not Suspicious, No biopsy or follow up indicated TR3 (3 points): Mildly Suspicious, FNA if >= 2.5 cm, Follow if >= 1.5 cm TR4 (4-6 points): Moderately Suspicious, FNA if >= 1.5 cm, Follow if >= 1.0 cm TR5 (>=7 points): Highly Suspicious, FNA if >= 1.0 cm, Follow if >= 0.5 cm Electronically signed by: Andres Mathur MD 02/10/2025 07:25 AM EDT RP
== END 2025-02-09 15:33 | disposition home or self-care (01) ==
LOC: HO.US 15:32
PROVIDERS: PCP Internal Medicine; Visit Provider Physician Assistant Medical
DX: R22.1 Localized swelling, mass and lump, neck (principal)
CPT/HCPCS: 76536

== ENCOUNTER → 2025-02-09 15:35 | Outpatient (BNV) | payer BC, SELFPAY | PROVIDERS: PCP Internal Medicine; Visit Provider Radiology Diagnostic Radiology | DX: E04.1 Nontoxic single thyroid nodule (principal) | CPT/HCPCS: 76536 ==

== ENCOUNTER 2025-03-11 15:04 | Outpatient (AMB) | payer BC, SELFPAY ==
--- NOTE | 2025-03-11 15:05 | MHC.OFFVIS ---
Vital Signs 03/11/25 15:06 Height 5 ft 6 in Weight 260 lb 12.909 oz BMI 42.1 BP 118/66 Blood Pressure Location Lt brachial Position Sitting Pulse 67 Pulse Source Pulse Oximeter Pulse Oximetry (%) 97 Oxygen Delivery Method Room Air Intake Visit Reasons: Nontoxic single thyroid nodule Intake Note: New patient present today for Nontoxic single thyroid nodule. 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 Accompanied by: Spouse Allergies morphine Allergy (Unknown, Verified 03/11/25 15:09) Hives Medication List - Last Reconciled 03/11/25 by Hue Gomez MD albuterol sulfate 90 mcg/actuation 2 puffs inhalation Q4-6H PRN apixaban (Eliquis) 5 mg PO BID aspirin 81 mg PO DAILY cholecalciferol (vitamin D3) 25 mcg PO DAILY diltiazem HCl ER 120 mg PO ONCE fdmhltngoap-fpendkwch-vfwmruxz 100-62.5-25 mcg (Trelegy Ellipta) 1 puff inhalation DAILY hydrochlorothiazide 25 mg PO DAILY hydrocortisone 2.5% 1 appl topical BID-QID PRN ibuprofen 800 mg PO Q8H PRN 90 days isosorbide mononitrate ER 60 mg PO DAILY lisinopril 10 mg PO DAILY zxiwwfwh-zjmfleutg-JI 3.5-10,000-1 mg/mL-unit/mL-% 5 drps otic (ears) BID nitroglycerin 0.4 mg sublingual Q5M PRN rosuvastatin 40 mg PO DAILY HPI Comments Details: 54-year-old male here today for initial evaluation of nontoxic multinodular goiter. Here today with Sarita. He has been feeling a lump in his neck in the submandibular region and so underwent a CT soft tissue neck 12/22/2024 which was unremarkable except some maxillary sinus thickening. He has been feeling this lump for the past 6 months. It is tender to touch. Given he continued to express concerns about the lab, ultrasound of the thyroid was done 02/09/2025 which showed a 0.8 cm left superior TR 4 nodule, a 0.9 cm left inferior TR 3 nodule. Both are subcentimeter nodules which do not really meet criteria for follow up. When I reviewed the images myself the left superior solid hypoechoic nodule is sort of ill-defined so it is hard to tell the exact boundaries it could measure more than a little bit more than 0.8 cm. Some normal-appearing lymph nodes noted as well. These are benign looking. In the area where he palpates a lump, there is a submandibular gland lymph node which has a slightly thickened cortex. It is however pretty small in size. Measuring 0.9 X 0.5 cm. Normal TSH from August 2024. Patient currently denies heat or cold intolerance, diarrhea or constipation, hair loss, palpitation, anxiety, weight changes, mood changes, low energy, changes in appearance of eyes or vision changes, tremors, increased diaphoresis or dry skin. ? has history of a fib . Patient denies any difficulty swallowing, pain on swallowing or voice changes or difficulty breathing. Patient denies any history of childhood neck radiation. Denies having ever used lithium, amiodarone or biotin supplements. Patient denies any family history of thyroid cancer . Mother has hypothyroidism. Physical exam General: sitting comfortably in no acute distress HEENT: normocephalic/atraumatic, Neck: supple, palpable 1 cm lymph node in the left submandibular region, no palpable thyroid nodules Cardiac: normal heart sounds Pulm: normal breath sounds B/L, no added breath sounds Abd: not distended, no tenderness Extremities: no edema, no signs of myxedema Laboratory Tests 08/25/24 07:06 TSH 3.91 US THYROID 02/09/25 HISTORY: R22.1 - Localized swelling, mass and lump, neck TECHNIQUE: Real-time grayscale ultrasound imaging was performed and images were reviewed. COMPARISON: Correlation is made with a CT of the neck with contrast dated 12/22/2024. FINDINGS: SIZE: The right thyroid lobe measures 4.2 x 1.7 x 1.5 cm. The left thyroid lobe measures 3.7 x 1.4 x 1.8 cm. The isthmus measures 3 mm. FLOW: Flow to the gland is normal. ECHOGENICITY: The echotexture of the gland is homogeneous. NODULES: Subcentimeter left thyroid nodules are identified as described below: Nodule #: 1 Location: Left upper pole measuring 8 x 6 x 7 mm. Shape: Wider than tall (0 points) Margins: Smooth (0 points) Echotexture: Hypoechoic (2 points) Composition: Solid (2 points) Calcifications: None (0 points) Total points: 4 TIRADS: TR4: Moderately suspicious. Nodule #: 2 Location: Left lower pole measuring 9 x 8 x 9 mm. Shape: Round (0 points) Margins: Smooth (0 points) Echotexture: Isoechoic (1 point) Composition: Solid (2 points) Calcifications: None (0 points) Total points: 3 TIRADS: TR3: Mildly suspicious. Incidental note is made of nonenlarged lymph nodes in the left submandibular region. US/US thyroid IMPRESSION: Subcentimeter left thyroid nodules as described. According to the ACR TI-RADS guidelines below, no additional workup is advised. CLINICAL HISTORY: R22.1 - Localized swelling, mass and lump, neck CT soft tissue neck with contrast 12/22/2024 Comparison: None Findings: The visualized intracranial contents are unremarkable. There is moderate left and mild right maxillary sinus mucosal thickening. Mastoids are clear. Pharyngeal mucosal space, parapharyngeal fat, prevertebral tissues, and epiglottis are within normal limits. Salivary glands are within normal limits. No sialoliths. Thyroid gland is unremarkable. Visualized lung apices are clear. No acute fractures. IMPRESSION: 1. Sinus disease. 2. Otherwise negative examination. This document has been electronically signed by: Jose Luis Zamora MD on 12/22/2024 16:24:36 [facility] Medical History (Updated 03/11/25 @ 15:43 by Hue Gomez MD) Head and neck lymphadenopathy Multinodular goiter (nontoxic) Thyroid nodule Chronic sinus infection Lump in neck Undescended right testicle Paroxysmal atrial fibrillation IBS (irritable bowel syndrome) History of 2019 novel coronavirus disease (COVID-19) Lymphadenopathy Tendinitis Radiculopathy Chronic back pain Migraine headache Hyperlipidemia Hypertension Atypical chest pain Bronchomalacia Obstructive airway disease Paralyzed hemidiaphragm CAD (coronary artery disease) Cervical disc disease GERD (gastroesophageal reflux disease) COPD (chronic obstructive pulmonary disease) Asthma Elevated cholesterol Surgical History (Updated 02/01/25 @ 07:47 by Maya Russell) Hx of colonoscopy (~10/05/22) Hx of appendectomy Hx of myringotomy History of lobectomy of lung Hx of heart artery stent Family History Father BP (high blood pressure) CHF (congestive heart failure) Melanoma Mother Heart disease Social History Housing: House Alcohol intake: current Alcohol intake frequency: holidays/special occasions only Patient Tobacco Use Status: Former Tobacco user service: No Current occupational status: employed Cognitive needs: No Hearing needs: No Vision needs: Yes (rx glasses) Assessment & Plan Assessment & Plan (1) Multinodular goiter (nontoxic): Code(s): E04.2 - Nontoxic multinodular goiter Category: Medical Plan: 54-year-old male with no personal history of head or neck radiation with no family history of thyroid cancer coming in today for initial evaluation of nontoxic multinodular goiter. He has been feeling a lump in his neck in the submandibular region and so underwent a CT soft tissue neck 12/22/2024 which was unremarkable except some maxillary sinus thickening. He has been feeling this lump for the past 6 months. It is tender to touch. Given he continued to express concerns about the lab, ultrasound of the thyroid was done 02/09/2025 which showed a 0.8 cm left superior TR 4 nodule, a 0.9 cm left inferior TR 3 nodule. Both are subcentimeter nodules which do not really meet criteria for follow up. When I reviewed the images myself the left superior solid hypoechoic nodule is sort of ill-defined so it is hard to tell the exact boundaries it could measure more than a little bit more than 0.8 cm. Some normal-appearing lymph nodes noted as well. These are benign looking. In the area where he palpates a lump, there is a submandibular gland lymph node which has a slightly thickened cortex. It is however pretty small in size. Measuring 0.9 X 0.5 cm. Normal TSH from August 2024. At this time as far as the thyroid nodules are concerned I will just have him repeat an ultrasound of the thyroid in 1 year with follow up with me after. His TSH is also on the upper limit of normal, I will also have him repeat TFTs prior to my follow up next year. As far as the lymph node is concerned, it is not concerning in appearance or size, however given that he has had this persisting for the past 6 months and it is tender to touch, I recommend he see an ENT surgeon for further evaluation of this. He does not have any B symptoms, no weight loss. To be concerned about lymphoma. However given persistence of this lump in his neck, he could consider ENT evaluation with further plan for biopsy with them. He will get the ENT referral from his primary care physician. He is already seeing a general surgeon for concern of salivary gland duct blockage, and is pending a neck biopsy for that. I told him to mentioned this to his general surgeon as well but also see ENT separately. Plan: -see ENT, PCP to refer -ordered ultrasound of the thyroid to be repeated in 1 year prior to follow up with me -ordered TSH and free T4 to be repeated prior to follow up with me -follow up in 1 year (2) Head and neck lymphadenopathy: Code(s): R59.1 - Generalized enlarged lymph nodes Category: Medical Plan: See above Plan I spent 45 minutes in reviewing the record, seeing the patient and documenting in the medical record. Orders: Orders Thyroid Stimulating Hormone 1 Year E04.1 - Nontoxic single thyroid nodule Free T4 (Free Thyroxine) 1 Year E04.1 - Nontoxic single thyroid nodule US thyroid 1 Year E04.1 - Nontoxic single thyroid nodule Patient Instructions: Do ultrasound of the thyroid in 1 year a few weeks prior to your appointment with me , someone will call you to schedule this Do blood work a few days prior to your appointment See ENT Coding Level of Care Code New Pt Level 4 (61912) Diagnoses Multinodular goiter (nontoxic) E04.2 Head and neck lymphadenopathy R59.1 Time Spent (min) 45
[2025-03-11 15:06] VITALS: BP 118/66; PULSE 67; O2SAT 97; BMI 42.1
== END 2025-03-11 15:41 | disposition home or self-care (01) ==
LOC: HO.ENCR 15:05
PROVIDERS: PCP Internal Medicine; Visit Provider Student in an Organized Health Care Education/Training Program
DX: E04.2 Nontoxic multinodular goiter (principal); R59.1 Generalized enlarged lymph nodes
CPT/HCPCS: 99204

== ENCOUNTER → 2025-03-11 15:04 | Outpatient (BNVA) | payer BC, SELFPAY | PROVIDERS: PCP Internal Medicine; Visit Provider Student in an Organized Health Care Education/Training Program ==

== ENCOUNTER 2025-04-09 16:25 | Outpatient (AMB) | payer BC, SELFPAY ==
[2025-04-09 16:24] VITALS: BP 120/59; PULSE 72; RESP 16; TEMP 36.6; O2SAT 95; BMI 41.2
--- NOTE | 2025-04-09 16:24 | A.OFFPC_ITS ---
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 Accompanied by: Self / Same As Patient Allergies morphine Allergy (Unknown, Verified 04/09/25 16:35) Hives Medication List - Last Reconciled 04/09/25 by Nilda Washington PA-C albuterol sulfate 90 mcg/actuation 2 puffs inhalation Q4-6H PRN apixaban (Eliquis) 5 mg PO BID aspirin 81 mg PO DAILY cholecalciferol (vitamin D3) 25 mcg PO DAILY diltiazem HCl ER 120 mg PO ONCE zncbuqmqncz-anfujqehf-hczgcerk 100-62.5-25 mcg (Trelegy Ellipta) 1 puff inhalation DAILY hydrocortisone 2.5% 1 appl topical BID-QID PRN ibuprofen 800 mg PO Q8H PRN 90 days isosorbide mononitrate ER 60 mg PO DAILY lisinopril 10 mg PO DAILY ubxnelkn-pyclmbbfa-VW 3.5-10,000-1 mg/mL-unit/mL-% 5 drps otic (ears) BID nitroglycerin 0.4 mg sublingual Q5M PRN rosuvastatin 40 mg PO DAILY Tobacco use date assessed: 04/09/25 Dental Screening Dental Screen Date: 01/13/25 HPI 3 month f/u HPI Details The patient is a 54-year-old male presenting with hypertension and atrial fibrillation management. The patient has a history of hypertension, previously managed with hydrochlorothiazide, which was discontinued due to low blood pressure readings. He reports experiencing lightheadedness after taking his medications in the morning for the past two weeks. The patient does not own a blood pressure cuff but describes symptoms of headaches and facial flushing when his blood pressure spikes. The patient has been diagnosed with atrial fibrillation and is currently on medications including lisinopril, isosorbide, and diltiazem for rate control. He reports that missing doses of diltiazem results in no adverse effects, but taking it makes physical activity more difficult. The patient is also on Eliquis, a blood thinner, for atrial fibrillation management. The patient has a history of thyroid nodules, which are currently being monitored without intervention as they are small and not believed to be causing neck swelling. The neck swelling has been evaluated by multiple specialists, including a service counter cashier and an parts counter clerk, who recommended an ENT consultation. [facility] Medical History Lightheadedness Head and neck lymphadenopathy Multinodular goiter (nontoxic) Thyroid nodule Chronic sinus infection Lump in neck Undescended right testicle Paroxysmal atrial fibrillation IBS (irritable bowel syndrome) History of 2019 novel coronavirus disease (COVID-19) Lymphadenopathy Tendinitis Radiculopathy Chronic back pain Migraine headache Hyperlipidemia Hypertension Atypical chest pain Bronchomalacia Obstructive airway disease Paralyzed hemidiaphragm CAD (coronary artery disease) Cervical disc disease GERD (gastroesophageal reflux disease) COPD (chronic obstructive pulmonary disease) Asthma Elevated cholesterol Surgical History Hx of colonoscopy (~10/05/22) Hx of appendectomy Hx of myringotomy History of lobectomy of lung Hx of heart artery stent Family History Father BP (high blood pressure) CHF (congestive heart failure) Melanoma Mother Heart disease Social History Housing: House Alcohol intake: current Alcohol intake frequency: holidays/special occasions only Patient Tobacco Use Status: Former Tobacco user service: No Current occupational status: employed Cognitive needs: No Hearing needs: No Vision needs: Yes (rx glasses) Questionnaire PHQ-9 Over the last 2 weeks, how often have you been bothered by any of the following problems? 1. Little interest or pleasure in doing things: not at all 2. Feeling down, depressed, or hopeless: not at all 3. Trouble falling or staying asleep, or sleeping too much: not at all 4. Feeling tired or having little energy: not at all 5. Poor appetite or overeating: not at all 6. Feeling bad about yourself - or that you are a failure or have let yourself or your family down: not at all 7. Trouble concentrating on things, such as reading the newspaper or watching television: not at all 8. Moving or speaking so slowly that other people could have noticed. Or the opposite - being so fidgety or restless that you have been moving around a lot more than usual: not at all 9. Thoughts that you would be better off or of hurting yourself in some way: not at all Total score: 0 Depression Screening Interpretation: Negative Depression Screening Done: Yes 64218 - PHQ-9 Billing: Yes Source: Developed by Drs. Andres Thomas, Irasema Shea, Triston Mendoza and colleagues, with an educational jeannette from [employer]. Thrive Questionnaire Date Thrive assessed: 01/13/25 I am a: Patient What is your living situation today?: I have a steady place to live Within the past 12 months, did the food you bought not last and you didn't have the money to get more?: Never true Within the past 12 months, did you worry whether your food would run out before you got money to buy more?: Never true Do you have trouble paying for medicines?: No Do you have trouble getting transportation to medical appointments?: No Do you have trouble paying your heating and electricity bill?: No Do you have trouble taking care of your child, family member or friend?: No Do you have trouble with day-to-day activities such as bathing, preparing meals, shopping, managing finances, etc.?: No Are you currently unemployed and looking for a job?: No Are you interested in more education?: No Please select the resources that you would like help with: None THRIVE Score: 0 AUDIT C Alcohol Use Questionnaire (AUDIT-C) 1. How often do you have a drink containing alcohol?: Monthly or less 2. How many drinks containing alcohol do you have on a typical day when you are drinking?: 1 or 2 3. How often do you have six or more drinks on one occasion?: Never Total Score: 1 Score Reviewed/Action Taken: No CONNOR-7 AMB Questionnaire CONNOR-7 Date CONNOR - 7 assessed: 01/13/25 Feeling nervous, anxious, or on edge: 0 = Not at all Not being able to stop or control worryin = Not at all Worrying too much about different things: 0 = Not at all Trouble relaxin = Not at all Being so restless that it is hard to sit still: 0 = Not at all Becoming easily annoyed or irritable: 0 = Not at all Feeling afraid as if something awful might happen: 0 = Not at all Total CONNOR-7 score (0-4 normal; 5-9 mild; 10-14 moderate; 15-21 severe): 0 Source: Developed by Drs. Andres Thomas, Irasema Shea, Triston Mendoza and colleagues, with an educational jeannette from [employer]. CONNOR-7 Assessment Billing CONNOR-7 Assessment Tool: CONNOR-7 Assessment 96644 Review of Systems Const Details: - Cardiovascular: Reports lightheadedness after taking medications, headaches, and facial flushing when blood pressure spikes. - Neurological: Denies numbness, confusion, or stroke-like symptoms. Physical exam (Primary Care) Vital Signs: Last Vital Signs Temp 97.8 F 04/09/25 16:24 Pulse 72 04/09/25 16:24 Resp 16 04/09/25 16:24 BP 120/59 L 04/09/25 16:24 Pulse Ox 95 04/09/25 16:24 Oxygen Delivery Method Room Air 04/09/25 16:24 Care Plan Goal for BP management: <140/90 at Goal BMI result Body Mass Index 41.2 BMI Assessment/Plan discussion: High BMI High, discussed plan: lifestyle, weight reduction, dietary, physical activity and alcohol moderation Tobacco/Smoking Status: Tobacco use Status Tobacco use date assessed 04/09/25 04/09/25 16:31 Patient Tobacco Use Status Former Tobacco user 04/09/25 16:31 PHQ-9: PHQ-9 Score PHQ-9: Total score 0 04/09/25 16:31 Depression Screening Interpretation: Negative Thrive Assessment: Date of Thrive Assessment Date Thrive assessed 01/13/25 04/09/25 16:31 Const Other: Appearance: Alert. Oriented X3. No acute distress. Head: Normal external exam. Normocephalic. Atraumatic. Eyes: Pupils are equal, round, and reactive to light. Extraocular movements intact. Conjunctiva and sclera normal. Eyelids normal. Throat: Pharynx normal. Uvula midline. Moist mucous membranes. Neck: Normal inspection. Neck supple. Full range of motion. Cardiovascular: Normal heart rate and rhythm. Heart sound normal. Respiratory: No respiratory distress. Painless inspiration Back: Full range of motion noted. Skin: Skin warm and dry. Normal skin color. Normal skin turgor. No rashes/lesions/lacerations noted. Extremities: Extremities exhibit normal range of motion. Neuro: Oriented X 3. No motor deficit. No sensory deficit. Reflexes normal. No numbness on one side of the body, confusion, falls, weakness, or difficulty noted. Coding Level of Care Code Est Pt Level 4 (50652) Complex EM visit Add On G2211 Diagnoses Hypertension I10 Paroxysmal atrial fibrillation I48.0 Thyroid nodule E04.1 Lump in neck R22.1 Additional Codes CONNOR-7 Assessment Billing - CONNOR-7 Assessment Tool: CONNOR-7 Assessment 26916 ([id number]) PHQ-9 - 20793 - PHQ-9 Billing: Yes ([id number]) Assessment & Plan Assessment & Plan (1) Hypertension: Code(s): I10 - Essential (primary) hypertension Category: Medical Plan: The plan is to discontinue lisinopril due to low blood pressure readings, while continuing other medications for blood pressure and heart rate control. Blood work will be conducted to check sodium and potassium levels, considering the previous use of hydrochlorothiazide. (2) Paroxysmal atrial fibrillation: Code(s): I48.0 - Paroxysmal atrial fibrillation Category: Medical Plan: The patient will continue taking diltiazem and isosorbide for rate control, and Eliquis for anticoagulation. A follow-up with cardiology is advised to reassess the medication regimen. (3) Thyroid nodule: Code(s): E04.1 - Nontoxic single thyroid nodule Category: Medical Plan: The thyroid nodules are being monitored without intervention as they are small and not causing symptoms. (4) Lump in neck: Code(s): R22.1 - Localized swelling, mass and lump, neck Category: Medical Plan: Referral to ENT is planned for further evaluation of the neck swelling, as recommended by the parts counter clerk. Plan Plan Patient was informed and verbally consented to the use of an ambient scribe for clinic note documentation during this visit. 1. Hypertension The plan is to discontinue lisinopril due to low blood pressure readings, while continuing other medications for blood pressure and heart rate control. Blood work will be conducted to check sodium and potassium levels, considering the previous use of hydrochlorothiazide. 2. Atrial Fibrillation The patient will continue taking diltiazem and isosorbide for rate control, and Eliquis for anticoagulation. A follow-up with cardiology is advised to reassess the medication regimen. 3. Thyroid Nodules The thyroid nodules are being monitored without intervention as they are small and not causing symptoms. 4. Neck Swelling Referral to ENT is planned for further evaluation of the neck swelling, as recommended by the parts counter clerk. I discussed with the patient the plan to discontinue lisinopril due to low blood pressure and to continue other medications for blood pressure and heart rate co ntrol. We also talked about the need for blood work to check sodium and potassium levels, and the importance of follow-up with cardiology to reassess the medication regimen. The patient was informed about the monitoring of thyroid nodules and the referral to ENT for further evaluation of neck swelling. Orders: Orders Complete Blood Count no Diff Today R42 - Dizziness and giddiness Basic Metabolic Panel Today R42 - Dizziness and giddiness Medications: Discontinued lisinopril Discontinued Reason: Doctor's Order 10 mg PO DAILY 90 tabs 1RF Patient Instructions: - Discontinue lisinopril as instructed. - Continue taking diltiazem, isosorbide, and Eliquis as prescribed. - Get blood work done within the next week to check sodium and potassium levels. - Follow up with cardiology as advised. - Await referral to ENT for neck swelling evaluation.
== END 2025-04-09 16:57 | disposition home or self-care (01) ==
LOC: HO.HMCSH 16:25
PROVIDERS: PCP Internal Medicine; Visit Provider Physician Assistant Medical
DX: I10 Essential (primary) hypertension (principal); I48.0 Paroxysmal atrial fibrillation; E04.1 Nontoxic single thyroid nodule; R22.1 Localized swelling, mass and lump, neck

== ENCOUNTER → 2025-04-09 16:25 | Outpatient (BNVA) | payer BC, SELFPAY | PROVIDERS: PCP Internal Medicine; Visit Provider Physician Assistant Medical | DX: I10 Essential (primary) hypertension (principal); I48.0 Paroxysmal atrial fibrillation; E04.1 Nontoxic single thyroid nodule; R22.1 Localized swelling, mass and lump, neck; Z79.01 Long term (current) use of anticoagulants; Z79.899 Other long term (current) drug therapy; Z13.31 Encounter for screening for depression | CPT/HCPCS: 96127 ==

== ENCOUNTER 2025-07-27 14:57 | Outpatient (AMB) | payer BC, SELFPAY ==
--- OUTSIDE RECORDS SUMMARY | 2025-07-26 09:10 | XMS_ITS | Encounter Summary ---
Author Organization [facility] Address [address] [place] [address] Care Team Providers Care Dice Person Name Role Phone Geoff Cardona MD Primary Care Provider [phone] Reason for Visit * Reason Comments Follow-up * Other Medical (Routine) - Authorized Specialty Diagnoses / Procedures Referred By Contac t Referred To Contact Cardiology Diagnoses [Per [facility], Follow up in about 4 weeks (around 06/25/2025) for with me triage 4-6 wks.] 06/01/25,LMOM mld appt ltr- Meenu V Procedures OFFICE VISIT Geoff Cardona MD [address] [place] [address] Phone: tel: fax: Clive Gruber NP [address] [place] [address] [address] [place] [address] Phone: tel: fax: Referral ID Status Reason Start Date Expiration Date V isits Requested Visits Authorized [id number] Authorized 04/20/2025 04/20/2026 6 6 Encounter Details Date Type Department Care Team (Latest Contact Info) Description 07/26/2025 9:10 AM EST Office Visit [facility] [address] [place] [address] Clive Gruber NP [address] [place] [address] [address] [place] [address] Coronary artery disease involving [place] heart with angina pectoris, unspecified vessel or lesion type (CMS/HCC V24) (Primary Dx); Atrial flutter, unspecified type (CMS/HCC V24, CMS/HCC V28); Hyperlipidemia, unspecified hyperlipidemia type; Primary hypertension Social History Tobacco Use Types Packs/Day Years Used Date Smoking Tobacco: Former Cigarettes Q uit: 09/23/1999 Smokeless Tobacco: Former Quit: 09/23/1991 Alcohol Use Standard Drinks/Week Comments Yes 0 (1 standard drink = 0.6 oz pur e alcohol) occasionally Sex and Gender Information Value Date Recorded Sex Assigned at Male 06/21/2025 9:46 AM EDT Legal Sex Male 2:01 PM EST Gender Identity Male 06/21/2025 9:46 AM EDT Sexual Orientation Straight 06/21/2025 9: 46 AM EDT documented as of this encounter Last Filed Vital Signs Vital Sign Reading Time Taken Comments Blood Pressure 116/60 07/26/2025 9:05 AM EST Pulse 71 07/26/2025 9:05 AM EST Temperature - - Respiratory Rate - - Oxygen Saturation 95% 07/26/2025 9:05 AM EST Inhaled Oxygen Concentration - - Weight 116 kg (255 lb 1.6 oz) 07/26/2025 9:05 AM EST Height 172.7 cm (5' 8 ) 07/26/2025 9:05 AM EST Body Mass Index 38.79 07/26/2025 9:05 AM EST documented in this encounter Progress Notes * Clive Gruber NP - 07/26/2025 9:10 AM ESTAddended by: CLIVE GRUBER on: 07/26/2025 12:13 PM Modules accepted: Orders * Clive Gruber NP - 07/26/2025 9:10 AM EST Images from the original note were not included. [facility] PRIMARY COTTON GINNER HELPER: Hussein Gonzalez MD PCP: Geoff Cardona MD HPI: Hermes Ledezma is a 54 y.o. old male with history of paroxysmal atrial flutter, FOX on CPAP, coronary disease status post drug-eluting stent to the mid RCA 10/2020, hypertension, hyperlipidemia, formersmoker, GERD, status post left lower lobectomy in 2004. He follows with pulmonology Dr. Shen. Patient recently presented,07/12/2025, for cardiac follow-up and reported active chest pain that was not relieved by nitroglycerin sublingual. He was sent by ambulance to the [facility] emergency department and admitted. The patient was seen by Dr. Keen, a nuclear stress test was completed which showed normal imaging. The patient did report chest pain during exercise. As such he underwent a left heart catheterization the following day. No hemodynamically significant coronary disease was identified. The patient presents today for cardiac follow up. He reports that since his discharge his episodes of chest discomfort are occurring less frequently. He is now taking pantoprazole and carafate. He denies palpitations. He states he has occasional palpitations unchanged from previously when he wore a30 day monitor. He denies dizziness, presyncope or syncope. He denies peripheral edema. Cardiac Testin. Left heart catheterization October 2020 showed mild luminal irregularities less than 30% in theleft main, mild luminal irregularities less than 30% in the LAD, 60% stenosis in the proximal subsection of the mid LAD, 60% stenosis in the distal subsection of the mid LAD, less than 30% mild luminal irregularities in the left circumflex, mild luminal irregularities less than 30% in the RCA, 95% s tenosis which was the culprit lesion in the mid subsection of the mid RCA, and mild luminal irregularities less than 30% in the ramus. 2. Pharmacological nuclear stress test September 2023 showed no evidence of ischemia or infarct by myocardial perfusion imaging. LVEF was normal. Focal calcifications on the RCA. The patient was noted to have possible short flutter type waves though not long enough to be diagnostic of significant arrhythmias. 3. 48-hour Holter monitor October 2023 which showed normal sinus rhythm, frequent PACs, one 6 beatatrial run, rare PVCs and 1 episode of ventricular bigeminy with a SVE burden of 1.4%. Diary returned with few episodes of palpitations and EKG at this time showed normal sinus rhythm with frequent PACs. 4. Echocardiogram completed November 2023 was a technically difficult study, left ventricular size appears grossly normal, mild concentric LVH, normal regional wall motion, LVEF 55 to 60% and normal left ventricular diastolic function. Normal RV size and global systolic function. 5. 30 day ambulatory loop monitor (01/03/2024 - 02/02/2024): The predominant rhythm was normal sinus rhythm. No evidence of sustained arrhythmias. There were a total of 12 patient triggered symptomaticevents and during these events the patient was noted to be in a normal sinus rhythm. 6. Sleep study January 2024: Obstructive sleep apnea. 7. Left heart catheterization 05/14/2024 showed mild luminal irregularities in left main, 50% stenosis in the distal subsection of the proximal LAD, mild luminal irregularities in the left circumflex,previous stent to the mid RCA showing wide patency. Diagnostic summary shows no significant change from prior angiography 2020. 8. Left heart catheterization completed 07/15/2025 with LMCA with minimal luminal irregularities, LAD with 60% stenosis in the mid subsection, patent prior RCA stent. iFR of the LAD was negative. No hemodynamically significant coronary disease was identified. ACTIVE MEDICATIONS: Medications Taking[1] PAST MEDICAL HISTORY: Problem List[2] ALLERGIES: Allergies[3] SOCIAL HISTORY: Social History Tobacco Use Smoking status: Former Current packs/day: 0.00 Types: Cigarettes Quit date: 09/23/1999 Years since quittin.8 Smokeless tobacco: Former Quit date: 09/23/1991 Substance Use Topics Alcohol use: Yes Comment: occasionally PHYSICAL EXAM: Vitals: 07/26/25 0905 BP: 116/60 BP Location: Right arm Patient Position: Sitting BP Cuff Size: Adult Pulse: 71 SpO2: 95% Weight: 116 kg (255 lb 1.6 oz) Height: 1.727 m (68 ) Physical Exam Constitutional: General: He is awake. He is not in acute distress. Appearance: He is well-developed. He is not diaphoretic. HENT: Head: Normocephalic. Eyes: Pupils: Pupils are equal, round, and reactive to light. Neck: Vascular: No carotid bruit, hepatojugular reflux or JVD. Cardiovascular: Rate and Rhythm: Normal rate and regular rhythm. Pulses: Normal pulses and intact distal pulses. Heart sounds: Normal heart sounds, S1 normal and S2 normal. No murmur heard. Pulmonary: Effort: Pulmonary effort is normal. No respiratory distress. Breath sounds: Normal breath sounds. No wheezing, rhonchi or rales. Chest: Chest wall: No tenderness. Abdominal: General: Bowel sounds are normal. There is no distension. Palpations: Abdomen is soft. Tenderness: There is no abdominal tenderness. Musculoskeletal: General: No deformity. Cervical back: Normal range of motion. No edema. Right lower leg: No edema. Left lower leg: No edema. Skin: General: Skin is warm and dry. Neurological: Mental Status: He is alert and oriented to person, place, and time. Psychiatric: Attention and Perception: Attention normal. Mood and Affect: Mood normal. Speech: Speech normal. EKG: Encounter Date: 05/28/25 ECG 12 lead Result Value Ventricular Rate ECG 75 Atrial Rate 75 P-R Interval 122 QRS Duration 100 Q-T Interval 382 QTc 426 P Wave [place] 30 R [place] 72 T [place] -53 ECG Interpretation Sinus rhythm with Premature atrial complexes Inferior infarct , age undetermined Abnormal ECG When compared with ECG of 16-JUL-2016 19:12, Premature atrial complexes are now Present Inferior infarct is now Present T wave inversion now evident in Inferior leads Confirmed by Sadaf KEEN JAMES ([id number]) on 05/28/2025 5:12:32 PM *Note: Due to a large number of results and/or encounters for the requested time period, some results have not been displayed. A complete set of results can be found in Results Review. TESTING: Lab Results Component Value Date GLUCOSE 112 (H) 07/09/2025 CALCIUM 9.6 07/09/2025 NA 142 07/09/2025 K 4.6 07/09/2025 CO2 23 07/09/2025 CL 104 07/09/2025 BUN 17 07/09/2025 CREATININE 0.88 07/09/2025 ASSESSMENT/PLAN: Coronary artery disease involving [place] heart, unspecified vessel or lesion type, unspecified whether angina present Patient has a history of coronary artery disease. Recent hospitalization due to ongoing chest pain. Left heart catheterization completed 07/15/2025 with LMCA with minimal luminal irregularities, LAD with 60% stenosis in the mid subsection, patent prior RCA stent. iFR of the LAD was negative. No hemodynamically significant coronary disease was identified. Will continue at this time on medical therapy with aspirin, Eliquis isosorbide, diltiazem and rosuvastatin. Nuclear PET myocardial perfusion imaging pending for consideration of microvascular disease. Patient advised to seek emergency medical attention by calling 911 if they were to develop severe dyspnea, chest pain that did not resolve with rest or nitroglycerin, or if they were to faint. Atrial flutter, unspecified type (CMS/HCC V24, CMS/HCC V28) With history of paroxysmal atrial flutter. He continues on rate control with diltiazem. He continues on Eliquis for stroke risk reduction at an appropriate dosage of 5 mg twice daily. He denies any abnormal bleeding. Hyperlipidemia, unspecified hyperlipidemia type Continue on statin. LDL 75. Encouraged to continue with dietary changes and increased physical activity. Primary hypertension Blood pressure is well-controlled today. I have reviewed with the patient the importance of a heart healthy lifestyle which includes eating a low-fat low-salt diet, getting regular exercise, maintaining a healthy weight, not smoking, and following up with routine medical care. Thank you for allowing us to participate in the care of this patient. The patient will follow up in4 months, sooner PRN. As per AHA guidelines and previously established plan of care by Dr. Hussein Gonzalez MD, we discussed the following today: CAD, a flutter, HLD, HTN [facility] [1] Outpatient Medications Marked as Taking for the 07/26/25 encounter (Office Visit) with Clive Gruber NP Medication Sig Dispense Refill albuterol HFA (PROAIR HFA ; PROVENTIL HFA ; VENTOLIN HFA) 90 mcg/actuation inhaler 1 puff. aspirin 81 mg EC tablet Take 1 tablet (81 mg total) by mouth 1 (one) time each day. cholecalciferol (VITAMIN D-3) 25 mcg (1,000 unit) tablet Take 1 tablet (1,000 Units total) by mouth1 (one) time each day. dilTIAZem XR (DILT-XR) 120 mg 24 hr capsule TAKE 1 CAPSULE BY MOUTH EVERY DAY 90 capsule 1 Eliquis 5 mg tablet TAKE 1 TABLET BY MOUTH TWICE A DAY 180 tablet 2 hydrocortisone 2.5 % ointment APPLY TOPICALLY 2 TO 4 TIMES A DAY NEEDED FOR RASH isosorbide mononitrate (IMDUR) 60 mg 24 hr tablet Take 1.5 tablets daily 135 tablet 1 lisinopriL (PRINIVIL,ZESTRIL) 10 mg tablet Take 1 tablet (10 mg total) by mouth 1 (one) time each day. rmjyukua-oirixatou-gmiwchwbnajaer (CORTISPORIN) otic solution PLACE 5 DROPS INTO THE EAR(S) 2 TIMESA DAY nitroglycerin (NITROSTAT) 0.[address] TABLET UNDER THE TONGUE EVERY 5 MINUTES NEEDED FOR CHEST PAIN FOR UP TO 100 DOSES. 25 tablet 1 omeprazole (PriLOSEC) [address] capsule Take 1 capsule (40 mg total) by mouth 1 (one) time each day.Do not crush or chew. pantoprazole (PROTONIX) 40 mg EC tablet Take 1 tablet (40 mg total) by mouth 1 (one) time each day before breakfast. Do not crush, chew, or split. rosuvastatin (CRESTOR) 40 mg tablet Take 1 tablet (40 mg total) by mouth 1 (one) time each day. sucralfate (CARAFATE) 1 gram tablet Take 1 tablet (1 g total) by mouth 4 (four) times a day. Trelegy Ellipta 100-62.5-25 mcg inhaler Inhale 1 puff (100 mcg total) by mouth 1 (one) time each day. 3 each 11 [2] Patient Active Problem List Diagnosis Anemia Anxiety Atrial flutter (CMS/HCC V24, CMS/HCC V28) CAD (coronary artery disease) Chest pain Dizziness Hyperlipidemia Hypertension FOX (obstructive sleep apnea) [3] Allergies Allergen Reactions Morphine Cosigned by Elliott Solorio MD at 07/26/2025 4:18 PM EST documented in this encounter Plan of Treatment Upcoming Encounters Date Type Department Care Team (Late st Contact Info) Description 12/30/2025 2:00 PM EDT Ancillary Procedure Pulmonology - [address] [phone] 12/30/2025 2:45 PM EDT Office Visit Pulmonology - [address] [phone] Salvador Shen MD [address] [facility] [place] [phone] documented as of this encounter Visit Diagnoses Diagnosis Coronary artery disease involving [place] heart with angina pectoris, unspecified vessel or lesion type (CMS/[facility] V24)- Primary Atrial flutter, unspecified type (CMS/HCC V24, CMS/HCC V28) Hyperlipidemia, unspecified hyperlipidemia type Primary hypertension Unspecified essential hypertension documented in this encounter Discontinued Medications Medication Sig Discontinue Reason Start Date End Da te lisinopriL (PRINIVIL,ZESTRIL) 10 mg tablet Take 1 tablet (10 mg total) by mouth 1 (one) time each day. 07/26/2025 omeprazole OTC (PriLOSEC OTC) 20 mg EC tablet Take 1 tablet (20 mg total) by mouth 1 (one) time each day. Dose adjustment 07/26/2025 documented as of this encounter Historical Medications * This list may reflect changes made after this encounter. lisinopriL (PRINIVIL,ZESTRIL ) 10 mg tablet Take 0.5 tablets (5 mg total) by mouth 1 (one) time each day. 07/26/2025 sucralfate (CARAFATE) 1 gram tablet Take 1 tablet (1 g total) by mouth 4 (four) times a day. pantoprazole (PROTONIX) 40 mg EC tablet Take 1 tablet (40 mg total) by mouth 1 (one) time each day before breakfast. Do not crush, chew, or split. omeprazole (PriLOSEC) [address] capsule Take 1 capsule (40 mg total) by mouth 1 (one) time each day. Do not crush or chew. added in this encounter Care Teams Dice Person Relationship Specialty Start Date End Date Geoff Cardona MD [facility] [address] [place] [address] [address] [place] [id number] PCP - General Internal Medicine 05/06/25 documented as of this encounter
--- NOTE | 2025-07-27 15:08 | A.OFFPC_ITS ---
Vital Signs 07/27/25 15:17 Height 5 ft 6 in Weight 255 lb 0.4 oz BMI 41.2 BP 116/62 Blood Pressure Location Rt brachial Pulse 60 Pulse Source Pulse Oximeter Temp 97.3 F Pulse Oximetry (%) 96 Intake Visit Reasons: TCM Intake Note: Visit Reason: TCM Intake Note: Patient is here for hospital discharge follow up. 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 Day Care Aide: Not Required per policy Accompanied by: Self / Same As Patient Allergies morphine Allergy (Unknown, Verified 07/27/25 15:32) Hives Medication List - Last Reconciled 07/27/25 by Nilda Washington PA-C albuterol sulfate 90 mcg/actuation 2 puffs inhalation Q4-6H PRN apixaban (Eliquis) 5 mg PO BID aspirin 81 mg PO DAILY cholecalciferol (vitamin D3) 25 mcg PO DAILY diltiazem HCl ER 120 mg PO ONCE dfhmahurwtf-kajlwebig-blkrrkdv 100-62.5-25 mcg (Trelegy Ellipta) 1 puff inhalation DAILY hydrocortisone 2.5% 1 appl topical BID-QID PRN ibuprofen 800 mg PO Q8H PRN 90 days isosorbide mononitrate ER 60 mg PO DAILY lisinopril 10 mg PO DAILY madyaepx-evoqquouh-CR 3.5-10,000-1 mg/mL-unit/mL-% 5 drps otic (ears) BID nitroglycerin 0.4 mg sublingual Q5M PRN pantoprazole (Protonix) 40 mg PO DAILY rosuvastatin 40 mg PO DAILY sucralfate (Carafate) 1 g PO TID Tobacco use date assessed: 04/09/25 Dental Screening Dental Screen Date: 01/13/25 HPI HPI Comments History of Present Illness Details Patient presents to the office for a TCM visit. Date of admission: 07/12/25 Date of discharge:07/16/25 This is a Follow-up from admission at [facility] HPI/hospital course/discharge summary: The patient is a 54-year-old male presenting for a post-hospitalization follow- up. He was admitted to [facility] on 07/12 and discharged on 07/16 or 07/17 after a 5-day stay for complaints of chest pain. Prior to admission, the patient had been complaining of chest pain for 6-8 months and was using nitroglycerin up to twice a day. An episode of chest pain in his automatic fabric cutter's office prompted the recent hospitalization. His chest pain limits his ability to exercise, as he feels he is going down for the count, and his weight has been stable around 250 lbs for about 5 months. During his hospitalization, acute coronary syndrome was ruled out and pulmonary embolism was deemed unlikely. He underwent a stress test, which reproduced his chest pain without nuclear imaging changes, and a subsequent cardiac catheterization showed no obstructive coronary artery disease. His chest pain was considered atypical and possibly gastrointestinal in origin. In the hospital, he had an episode of hypotension and bradycardia with a heart rate under 40, leading to unconsciousness, after receiving nitroglycerin paste and Dilaudid simultaneously. His medical history is significant for CAD s/p PCI, paroxysmal atrial fibrillation, hyperlipidemia, hypertension, GERD, obstructive sleep apnea, and COPD. His medications were reconciled, with omeprazole being discontinued and replaced with Protonix and Carafate. He continues aspirin, Eliquis, and a statin. Post-discharge, he followed up with his automatic fabric cutter, Dr. Farias, who confirmed that everything looked the same on the stress test and that the cardiac cath was his third one. The automatic fabric cutter advised him that the pain is not cardiac in origin and encouraged him to exercise, aiming for a heart rate of 130. A cardiac PET scan is being pursued to evaluate the heart's microvessels but has been denied by insurance. Hospital labs showed mild anemia with a hemoglobin of 12.8 and hematocrit of 39.4, though the patient reports no prior history of anemia. Discharged to/Current Location: Home Lives with: Diagnosis: Atypical chest pain Procedures performed: Stress test with no nuclear imaging changes; cardiac catheterization which was no obstructive CAD responsible for symptoms found- atypical New medications: Protonix and Carafate Discontinued medications: Omeprazole Change medications/dosing: None Pending labs: None Pending diagnostic test: none Any Follow-up Labs required? none Any Follow-up Diagnostic test required? PET scan with Cardiology at Dr. Farias How are you feeling? Great Are you in any pain or discomfort? None at this time has had intermittent episodes of Chest pain Do you have any questions about your condition or discharge instructions? No Were you able to get your medications filled? yes Do you have any questions about your medications? yes Any referrals required? none Were you able to schedule your follow-up appointment? yes If home health was ordered, have they contact you? not interested Any outpatient services, if so, are you scheduled? not interested Are there any additional resources like transportation you might need during her recovery? - [facility]? not interested - V[employer]ERINARY [employer]ACTICE MANAGER? not interested - [employer]als [employer] wheels? not interested Educational need/resources: What support system do you have? and kids Social History - Lives at home with his and has kevin who serve as part of his support system. - He is active and independent. - Exercise is limited by exertional ches t pain; however, he would like to exercise more and previously enjoyed running and biking. - Patient is interested in weight loss t hrough diet and exercise and declined weight loss medications. - Diet: He reports sometimes skipping me als like lunch and then overeating at dinner, as well as snacking at night, particularly when stressed. - He is interested in learning more abou t a healthy diet, including good versus bad cholesterol, and requested a referral to a government affairs specialist. - He takes a B vitamin complex and is ai jb to eat more vegetables and clean foods. [facility] Medical History Hospital discharge follow-up Mild anemia Morbid obesity with BMI of 40.0-44.9, adult Lightheadedness Head and neck lymphadenopathy Multinodular goiter (nontoxic) Thyroid nodule Chronic sinus infection Lump in neck Undescended right testicle Paroxysmal atrial fibrillation IBS (irritable bowel syndrome) History of 2019 novel coronavirus disease (COVID-19) Lymphadenopathy Tendinitis Radiculopathy Chronic back pain Migraine headache Hyperlipidemia Hypertension Atypical chest pain Bronchomalacia Obstructive airway disease Paralyzed hemidiaphragm CAD (coronary artery disease) Cervical disc disease GERD (gastroesophageal reflux disease) COPD (chronic obstructive pulmonary disease) Asthma Elevated cholesterol Surgical History Hx of colonoscopy (~10/05/22) Hx of appendectomy Hx of myringotomy History of lobectomy of lung Hx of heart artery stent Family History Father BP (high blood pressure) CHF (congestive heart failure) Melanoma Mother Heart disease Social History Housing: House Alcohol intake: current Alcohol intake frequency: holidays/special occasions only Patient Tobacco Use Status: Former Tobacco user service: No Current occupational status: employed Cognitive needs: No Hearing needs: No Vision needs: Yes (rx glasses) Questionnaire PHQ-9 Over the last 2 weeks, how often have you been bothered by any of the following problems? 1. Little interest or pleasure in doing things: not at all 2. Feeling down, depressed, or hopeless: not at all 3. Trouble falling or staying asleep, or sleeping too much: not at all 4. Feeling tired or having little energy: not at all 5. Poor appetite or overeating: not at all 6. Feeling bad about yourself - or that you are a failure or have let yourself or your family down: not at all 7. Trouble concentrating on things, such as reading the newspaper or watching television: not at all 8. Moving or speaking so slowly that other people could have noticed. Or the opposite - being so fidgety or restless that you have been moving around a lot more than usual: not at all 9. Thoughts that you would be better off or of hurting yourself in some way: not at all Total score: 0 Depression Screening Interpretation: Negative Depression Screening Done: Yes 87046 - PHQ-9 Billing: Yes Source: Developed by Drs. Andres Thomas, Irasema Shea, Triston Mendoza and colleagues, with an educational jeannette from [employer]. Thrive Questionnaire Date Thrive assessed: 01/13/25 I am a: Patient What is your living situation today?: I have a steady place to live Within the past 12 months, did the food you bought not last and you didn't have the money to get more?: Never true Within the past 12 months, did you worry whether your food would run out before you got money to buy more?: Never true Do you have trouble paying for medicines?: No Do you have trouble getting transportation to medical appointments?: No Do you have trouble paying your heating and electricity bill?: No Do you have trouble taking care of your child, family member or friend?: No Do you have trouble with day-to-day activities such as bathing, preparing meals, shopping, managing finances, etc.?: No Are you currently unemployed and looking for a job?: No Are you interested in more education?: No Please select the resources that you would like help with: None THRIVE Score: 0 CONNOR-7 AMB Questionnaire CONNOR-7 Date CONNOR - 7 assessed: 01/13/25 Feeling nervous, anxious, or on edge: 0 = Not at all Not being able to stop or control worryin = Not at all Worrying too much about different things: 0 = Not at all Trouble relaxin = Not at all Being so restless that it is hard to sit still: 0 = Not at all Becoming easily annoyed or irritable: 0 = Not at all Feeling afraid as if something awful might happen: 0 = Not at all Total CONNOR-7 score (0-4 normal; 5-9 mild; 10-14 moderate; 15-21 severe): 0 Source: Developed by Drs. Anrdes Thomas, Irasema Shea, Triston Mendoza and colleagues, with an educational jeannette from [employer]. CONNOR-7 Assessment Billing CONNOR-7 Assessment Tool: CONNOR-7 Assessment 47861 Review of Systems Const Details: - General: Reports feeling better since his hospitalization. - Cardiovascular: Reports persistent intermittent chest pain and atrial fibrillation with fluttering. - Gastrointestinal: Denies black or bloody stools. All systems reviewed & are unremarkable except as noted in HPI and below Physical exam (Primary Care) Vital Signs: Last Vital Signs Temp 97.3 F 07/27/25 15:17 Pulse 60 07/27/25 15:17 BP 116/62 07/27/25 15:17 Pulse Ox 96 07/27/25 15:17 Vitals signs have been reviewed. Care Plan Goal for BP management: <140/90 at Goal BMI result Body Mass Index 41.2 BMI Assessment/Plan discussion: High BMI High, discussed plan: lifestyle, weight reduction, dietary, physical activity, alcohol moderation and other Tobacco/Smoking Status: Tobacco use Status Tobacco use date assessed 04/09/25 07/27/25 15:21 Patient Tobacco Use Status Former Tobacco user 07/27/25 15:21 PHQ-9: PHQ-9 Score PHQ-9: Total score 0 07/27/25 15:34 Depression Screening Interpretation: Negative Thrive Assessment: Date of Thrive Assessment Date Thrive assessed 01/13/25 07/27/25 15:21 Const Other: Appearance: Alert. Oriented X3. No acute distress. Head: Normal external exam. Normocephalic. Atraumatic. Eyes: Pupils are equal, round, and reactive to light. Extraocular movements intact. Conjunctiva and sclera normal. Eyelids normal. Throat: Pharynx normal. Uvula midline. Moist mucous membranes. Neck: Normal inspection. Neck supple. Full range of motion. Cardiovascular: Normal heart rate and rhythm. Respiratory: No respiratory distress. Painless inspiration. Back: Full range of motion noted. Skin: Skin warm and dry. Normal skin color. Normal skin turgor. No rashes/lesions/lacerations noted. Extremities: Extremities exhibit normal range of motion. Neuro: Oriented X 3. No motor deficit. No sensory deficit. Reflexes normal. Results Reviewed Results Reviewed: - Labs (from recent hospitalization): - Mild anemia with H&H of 12.8 and 39.4. - Cholesterol was noted to be good. - Procedures (from recent hospitalization): - Cardiac catheterization: No obstructive CAD found to be responsible for symptoms. - Stress test: Reproduced chest pain but showed no nuclear imaging changes. Coding Level of Care Code TCM High MDM <= 14 days Complex EM visit Add On G2211 Diagnoses Hospital discharge follow-up Z09 Atypical chest pain R07.89 Mild anemia D64.9 GERD (gastroesophageal reflux disease) K21.9 Morbid obesity with BMI of 40.0-44.9, adult E66.01; Z68.41 Additional Codes CONNOR-7 Assessment Billing - CONNOR-7 Assessment Tool: CONNOR-7 Assessment 01399 ([id number]) PHQ-9 - 93345 - PHQ-9 Billing: Yes ([id number]) Time Spent (min) 60 Assessment & Plan Assessment & Plan (1) Hospital discharge follow-up: Code(s): Z09 - Encounter for follow-up examination after completed treatment for conditions other than malignant neoplasm Category: Medical (2) Atypical chest pain: Code(s): R07.89 - Other chest pain Category: Medical Plan: The patient's chest pain, which prompted his recent hospitalization, was investigated thoroughly with a stress test and cardiac catheterization, which ruled out obstructive coronary artery disease as the cause. He continues to have intermittent chest pain and palpitations. Cardiology has cleared him to exercise, recommending he aim for a heart rate of 130 and work through the discomfort. A cardiac PET scan is pending insurance approval to investigate for possible microvascular disease. The plan is to continue current cardiac medications and follow up with cardiology. (3) Mild anemia: Code(s): D64.9 - Anemia, unspecified Category: Medical Plan: Recent hospital labs revealed a new finding of mild anemia (Hgb 12.8, Hct 39.4). The patient denies any signs of bleeding, such as black or bloody stools. This is thought to be potentially due to hemodilution or iatrogenic blood loss from frequent draws during his five-day hospital stay. Will repeat CBC in one to two weeks to ensure it is improving and not worsening. (4) GERD (gastroesophageal reflux disease): Code(s): K21.9 - Gastro-esophageal reflux disease without esophagitis Category: Medical Plan: GERD was considered a possible etiology for his atypical chest pain. In the hospital, his omeprazole was discontinued, and he was started on Protonix and Carafate. The patient will continue this regimen. (5) Morbid obesity with BMI of 40.0-44.9, adult: Code(s): E66.01 - Morbid (severe) obesity due to excess calories; Z68.41 - Body mass index [BMI] 40.0-44.9, adult Category: Medical Plan: The patient is motivated to lose weight to improve his health and potentially reduce his medication burden. He has declined weight-loss medications and prefers to focus on diet and exercise. He has an agreement with his automatic fabric cutter to re-evaluate his medications if he loses weight. A referral will be made to a government affairs specialist, and he was provided with educational materials on healthy eating for cholesterol and blood pressure management. Plan Plan Patient was informed and verbally consented to the use of an ambient scribe for clinic note documentation during this visit. 1. Atypical Chest Pain The patient's chest pain, which prompted his recent hospitalization, was investigated thoroughly with a stress test and cardiac catheterization, which ruled out obstructive coronary artery disease as the cause. He continues to have intermittent chest pain and palpitations. Cardiology has cleared him to exercise, recommending he aim for a heart rate of 130 and work through the discomfort. A cardiac PET scan is pending insurance approval to investigate for possible microvascular disease. The plan is to continue current cardiac medications and follow up with cardiology. 2. Mild Anemia Recent hospital labs revealed a new finding of mild anemia (Hgb 12.8, Hct 39.4). The patient denies any signs of bleeding, such as black or bloody stools. This is thought to be potentially due to hemodilution or iatrogenic blood loss from frequent draws during his five-day hospital stay. Will repeat CBC in one to two weeks to ensure it is improving and not worsening. 3. Gastroesophageal Reflux Disease GERD was considered a possible etiology for his atypical chest pain. In the hospital, his omeprazole was discontinued, and he was started on Protonix and Carafate. The patient will continue this regimen. 4. Weight Management The patient is motivated to lose weight to improve his health and potentially reduce his medication burden. He has declined weight-loss medications and prefers to focus on diet and exercise. He has an agreement with his automatic fabric cutter to re-evaluate his medications if he loses weight. A referral will be made to a government affairs specialist, and he was provided with educational materials on healthy eating for cholesterol and blood pressure management. 5. Follow-Up The patient will follow up in the office for his scheduled six-month visit on October 08 to monitor his progress with cardiology and his overall health status. I reviewed the patient's recent hospitalization for chest pain, including the discharge summary. I explained that the extensive cardiac workup, including a stress test and his third cardiac catheterization, ruled out an acute coronary syndrome or obstructive coronary artery disease as the cause of his symptoms. We discussed that the episode of hypotension and bradycardia he experienced was a reaction to the near-simultaneous administration of nitroglycerin paste and Dilaudid. We discussed the new finding of mild anemia on his hospital labs, and I explained it was likely related to frequent blood draws. We agreed he would have a repeat CBC in one to two weeks to ensure it resolves. I supported his decision to pursue weight loss through lifestyle changes rather than medication and placed a referral for a government affairs specialist. I provided him with educational materials on diet for managing cholesterol and blood pressure. I confirmed that he understood his discharge medications, including the addition of Protonix and Carafate. I reinforced the automatic fabric cutter's advice that he is cleared for activity and does not have any restrictions. We confirmed his follow-up appointment in this office for October 08. Orders: Orders Complete Blood Count no Diff Today Z00.00 - Encounter for general adult medical examination without abnormal findings Referrals Patient Admitting Clerk Nutrition Referral E66.01 - Morbid (severe) obesity due to excess calories, Z68.41 - Body mass index [BMI] 40.0-44.9, adult Patient Instructions: - Go to the lab to have your blood work repeated in one to two weeks to recheck your blood count. - Continue taking all of your medications as prescribed, including the new Protonix and Carafate. - Your heart doctor has cleared you to exercise, so you should aim for about an hour of strenuous activity daily. - A referral has been sent for you to see a government affairs specialist for diet counseling. - You do not have any new activity or travel restrictions. - Keep your follow-up appointment with our office on October 08 at 4:15 PM. - Continue to follow up with your automatic fabric cutter, Dr. Farias, as planned.
[2025-07-27 15:17] VITALS: BP 116/62; PULSE 60; TEMP 36.3; O2SAT 96; BMI 41.2
--- OUTSIDE RECORDS SUMMARY | 2025-07-27 18:01 | XMS_ITS | Clinical Summary ---
Author Organization [facility] Address [address] [place] [address] Phone Care Team Providers Care Leak Inspector Name Role Phone Geoff Cardona MD Primary Care Provider [phone] Allergies Active Allergy Reactions Criticality Noted Date Comments Morphine 03/25/2025 Medications isosorbide mononitrate (IMDUR) 60 mg 24 hr tablet Take 1.5 tablets daily 135 tablet 1 02/25/20 25 Active dilTIAZem XR (DILT-XR) 120 mg 24 hr capsule TAKE 1 CAPSULE BY MOUTH EVERY DAY 90 capsule 1 02/25/20 25 Active albuterol HFA (PROAIR HFA ; PROVENTIL HFA ; VENTOLIN HFA) 90 mcg/actuation inhaler 1 puff. 07/22/20 16 Active aspirin 81 mg EC tablet Take 1 tablet (81 mg total) by mouth 1 (one) time each day. 08/12/20 20 Active cholecalciferol (VITAMIN D-3) 25 mcg (1,000 unit) tablet Take 1 tablet (1,000 Units total) by mouth 1 (one) time each day. Active hydrocortisone 2.5 % ointment APPLY TOPICALLY 2 TO 4 TIMES A DAY NEEDED FOR RASH 11/04/19 25 Active neomycin-polymy jos-hydrocortis one (CORTISPORIN) otic solution PLACE 5 DROPS INTO THE EAR(S) 2 TIMES A DAY 11/04/19 25 Active rosuvastatin (CRESTOR) 40 mg tablet Take 1 tablet (40 mg total) by mouth 1 (one) time each day. Active nitroglycerin (NITROSTAT) 0.[address] 1 TABLET UNDER THE TONGUE EVERY 5 MINUTES NEEDED FOR CHEST PAIN FOR UP TO 100 DOSES. 25 tablet 1 04/05/20 25 Active Trelegy Ellipta 100-62.5-25 mcg inhaler Inhale 1 puff (100 mcg total) by mouth 1 (one) time each day. 3 each 11 06/22/20 25 Active Eliquis 5 mg tabletIndicatio ns:Unspecified atrial flutter (CMS/HCC V24, CMS/HCC V28) TAKE 1 TABLET BY MOUTH TWICE A DAY 180 tablet 2 07/19/20 25 Active omeprazole (PriLOSEC) [address] capsule Take 1 capsule (40 mg total) by mouth 1 (one) time each day. Do not crush or chew. Active pantoprazole (PROTONIX) 40 mg EC tablet Take 1 tablet (40 mg total) by mouth 1 (one) time each day before breakfast. Do not crush, chew, or split. Active sucralfate (CARAFATE) 1 gram tablet Take 1 tablet (1 g total) by mouth 4 (four) times a day. Active lisinopriL (PRINIVIL,ZESTR IL) 10 mg tablet Take 0.5 tablets (5 mg total) by mouth 1 (one) time each day. 07/26/20 25 Active apixaban (Eliquis) 5 mg tabletIndicatio ns:Unspecified atrial flutter (CMS/HCC V24, CMS/HCC V28) TAKE 1 TABLET BY MOUTH TWICE A DAY 180 tablet 2 10/05/19 25 025 Discontinued lisinopriL (PRINIVIL,ZESTR IL) 10 mg tablet Take 1 tablet (10 mg total) by mouth 1 (one) time each day. 025 Discontinued omeprazole OTC (PriLOSEC OTC) 20 mg EC tablet Take 1 tablet (20 mg total) by mouth 1 (one) time each day. 025 Discontinued(Do se adjustment) Active Problems Problem Noted Date Diagnosed Date Dizziness 06/17/2024 Overview (03/09/2025): Last Assessment & Plan: Patient will occasionally experience dizziness with bending over. We discussed this may be effect of some of his cardiac medications. Recommend he continue to stay adequately hydrated and make small positional movements slowly. Will arrange for a carotid ultrasound to evaluate for carotid artery stenosis as a cause of his symptoms. FOX (obstructive sleep apnea) 11/22/2023 Overview (03/09/2025): Last Assessment & Plan: Patient will continue wearing his CPAP as prescribed. Anemia 11/18/2023 Anxiety 11/18/2023 Atrial flutter (CMS/HCC V24, CMS/HCC V28) 2023 Overview (03/09/2025): Last Assessment & Plan: Patient has a history of paroxysmal atrial flutter and continues on rate control therapy with diltiazem. His heart rate is adequate today. Recent ambulatory youth nutritional monitor did not show any sustained arrhythmias. He also continues on anticoagulation therapy with apixaban. No episodes of abnormal bleeding of been noted. Assessment & Plan (05/28/2025 4:34 PM EDT): With history of paroxysmal atrial flutter. He continues on rate control with diltiazem. His ECG today is showing normal sinus rhythm at 75 bpm with 2 PACs. He continues on Eliquis for stroke risk reduction at an appropriate dosage of 5 mg twice daily. He denies any abnormal bleeding. Orders: ECG 12 lead Chest pain 09/02/2023 Overview (03/09/2025): Last Assessment & Plan: The patient is reporting episodes of chest discomfort. I recommended the patient undergo a stress echocardiogram to evaluate for ischemia as a cause of his symptoms. We will also update an echocardiogram to reevaluate his LV function and assess for any valvular disease as a cause. The patient will increase his isosorbide mononitrate to 60 mg orally daily for further antianginal. I will notify him the results as soon as the become available. Patient advised to seek emergency medical attention by calling 911 if they were to develop severe dyspnea, chest pain that did not resolve with rest or nitroglycerin, or if they were to faint. Assessment & Plan (07/12/2025 10:02 AM EDT): Patient presenting to the office today with active chest discomfort, left-sided and radiating down his left arm. He took a nitroglycerin upon arrival to the room and 1 approximately 10 minutes later. Chest pain level has decreased to a 4 out of 10. An ECG was completed and EMS was called. ECG with no ST elevation or depression. BP after nitroglycerin 120/70. Patient brought to [facility] ED for further evaluation of active chest discomfort. Will follow-up with the patient in the office following his discharge from the hospital. At that time, may consider increasing his diltiazem dose. Will also order a nuclear PET myocardial perfusion imaging for consideration of microvascular disease to be completed outpatient. BMI > 39 Orders: ECG 12 lead PET myocardial perfusion imaging; Future CAD (coronary artery disease) 11/04/2020 Overview (03/09/2025): Last Assessment & Plan: Patient has a history of coronary artery disease. Last left heart catheterization April 2024 showed no significant change from prior angiography with 50% stenosis in the distal subsection of the proximal LAD and previous stent to the mid RCA showing wide patency. We discussed these results in depth today. Given his occasional episodes of chest discomfort with exertion, we discussed possibly increasing antianginal therapy, however given his ongoing dizziness, the patient would like to stay on his current doses at this point. He will notify me of any changes in his symptoms and continue to follow with pulmonology and wear his CPAP as prescribed. He will continue on aspirin and statin therapy. He will continue on anginal therapy with Imdur and diltiazem. Patient advised to seek emergency medical attention by calling 911 if they were to develop severe dyspnea, chest pain that did not resolve with rest or nitroglycerin, or if they were to faint. I have given him a prescription for nitroglycerin and reviewed administration instructions. Assessment & Plan (05/28/2025 4:34 PM EDT): Patient has a history of coronary artery disease. Last left heart catheterization April 2024 showed no significant change from prior angiography with 50% stenosis in the distal subsection of the proximal LAD and previous stent to the mid RCA showing wide patency. Reports ongoing occasional chest discomfort on exertion such as when walking up a steep hill. On his normal level of exertion such as taking long walks he does not experience any symptoms. He denies shortness of breath. He has been experiencing lightheadedness with his medications so at this time we will not increase his antianginals as he is looking to decrease or discontinue medications today. Will continue at this time on medical therapy with aspirin, Eliquis isosorbide, diltiazem and rosuvastatin. Patient advised to seek emergency medical attention by calling 911 if they were to develop severe dyspnea, chest pain that did not resolve with rest or nitroglycerin, or if they were to faint. Orders: HDL cholesterol; Future Cholesterol, total; Future LDL cholesterol, direct; Future Triglycerides; Future Basic metabolic panel; Future Hyperlipidemia 11/04/2020 Overview (03/09/2025): Last Assessment & Plan: Will update a new fasting lipid panel to reassess his lipid control. He will continue his current dose of rosuvastatin as prescribed. I have reviewed with the patient the importance of a heart healthy lifestyle which includes eating a low-fat low-salt diet, getting regular exercise, maintaining a healthy weight, not smoking, and following up with routine medical care. Assessment & Plan (05/28/2025 4:34 PM EDT): Continue on statin. Will update lipid panel. Encouraged to continue with dietary changes and increased physical activity. Hypertension 11/04/2020 Overview (03/09/2025): Last Assessment & Plan: Patient's blood pressure is well-controlled. He will continue his current antihypertensive medication regimen as prescribed. Assessment & Plan (05/28/2025 4:34 PM EDT): Blood pressure is well-controlled today. He reports lightheadedness several hours after he takes his morning blood pressure medications. As such, we will decrease his lisinopril to 5 mg daily and have him take this medication in the evening. He will continue to monitor his blood pressure and symptoms and will re-evaluate after this change. Encounters Date Type Department Care Team Description 07/26/2025 9:10 AM EST Office Visit [facility] [address] [place] [address] Karla Veloz NP Coronary artery disease involving chuloon[place]ick heart with angina pectoris, unspecified vessel or lesion type ([facility] V24) (Primary Dx); Atrial flutter, unspecified type ([facility]/HCC V24, CMS/HCC V28); Hyperlipidemia, unspecified hyperlipidemia type; Primary hypertension 07/19/2025 Telephone [facility] [address] [place] [address] Aditi Russo NP 07/12/2025 8:40 AM EDT Office Visit [facility] [address] [place] [address] Karla Veloz NP Chest pain, unspecified type (Primary Dx); Coronary artery disease involving chul[place]awick heart with angina pectoris, unspecified vessel or lesion type ([facility] V24) 06/28/2025 3:45 PM EDT Office Visit [facility] - [place] [address] [place] [address] Salvador Shen MD Moderate asthma without complication, unspecified whether persistent (Primary Dx); FOX (obstructive sleep apnea); Morbid obesity ([facility] V24, [facility] V28) 05/28/2025 3:10 PM EDT Office Visit [facility] [address] [place] [address] Karla Veloz NP Coronary artery disease involving chul[place]awick heart, unspecified vessel or lesion type, unspecified whether angina present (Primary Dx); Atrial flutter, unspecified type ([facility] V24, CMS/[facility] V28); Hyperlipidemia, unspecified hyperlipidemia type; Primary hypertension 04/26/2025 Telephone [facility] [address] [place] [address] Karla Veloz NP from Last 3 Months Surgical History Surgery Date Site/Laterality Comments ANGIOPLASTY PROCEDURE: HISTORICAL ANGIOPLASTY W/STENT CARDIAC CATHETERIZATION PROCEDURE: HISTORICAL CARDIAC CATH CARDIAC CATH DONE [place] 07/15/2025 [place] [facility] INDICATIONS: Angina. Medical History Medical History Date Comments Hyperlipidemia DX:Hyperlipidemi a Essential hypertension DX:Essent ial hypertension Family History Medical History Relation Name Comments Heart failure Father Kidney failure Father Coronary artery disease Mother CABG Uncle 1 CABG Uncle 2 CABG Uncle 3 Relation Name Status Comments Father Mother Other Uncle 1 Uncle 2 Uncle 3 Social History Tobacco Use Types Packs/Day Years Used Date Smoking Tobacco: Former Cigarettes Q uit: 09/23/1999 Smokeless Tobacco: Former Quit: 09/23/1991 Tobacco Cessation:Counseling Given: Not Answered Alcohol Use Standard Drinks/Week Comments Yes 0 (1 standard drink = 0.6 oz pur e alcohol) occasionally Sex and Gender Information Value Date Recorded Sex Assigned at Male 06/21/2025 9:46 AM EDT Legal Sex Male 2:01 PM EST Gender Identity Male 06/21/2025 9:46 AM EDT Sexual Orientation Straight 06/21/2025 9: 46 AM EDT Obstetrics History Last Filed Vital Signs Vital Sign Reading Time Taken Comments Blood Pressure 116/60 07/26/2025 9:05 AM EST Pulse 71 07/26/2025 9:05 AM EST Temperature 36.2 C (97.2 F) 03/25/2025 3:21 PM EDT Respiratory Rate - - Oxygen Saturation 95% 07/26/2025 9:05 AM EST Inhaled Oxygen Concentration - - Weight 116 kg (255 lb 1.6 oz) 07/26/2025 9:05 AM EST Height 172.7 cm (5' 8 ) 07/26/2025 9:05 AM EST Body Mass Index 38.79 07/26/2025 9:05 AM EST Plan of Treatment Upcoming Encounters Date Type Department Care Team (Late st Contact Info) Description 12/30/2025 2:00 PM EDT Ancillary Procedure Pulmonology - [place] [address] [phone] 12/30/2025 2:45 PM EDT Office Visit Pulmonology [address] [place] [phone] Salvador Shen MD [address] [place] [phone] Health Maintenance Due Date Last Done Comments Colorectal Cancer Screening: Colonoscopy 1969 Hepatitis B Vaccines (1 of 3 - 19+ 3-dose series) 1988 Pneumococcal Vaccine: 50+ Years (1 of 2 - PCV) 1988 RSV Immunization Adult Patients (1 - Risk 50-74 years 1-dose series) 2019 Zoster Vaccines (1 of 2) 2019 HIV Screening 08/22/2022 Hepatitis C Screening 08/22/2022 Social Influencers of Health Screening 08/22/2022 Depression Screening 09/23/2024 COVID-19 Vaccine (3 - 2024-2 6 season) 2025 02/04/2021, 01/07/2021 Influenza Vaccine (#1) 2025 , 07/26/2021, 06/06/2017 Hypertension/CHF/CAD Annual BMP Blood Test 07/09/2026 07/09/2025 Cholesterol Screening (Lipid Panel) 07/09/2030 07/09/2025, 07/09/2025, 07/09/2025 DTaP,Tdap,and Td Vaccines (2 - Td or Tdap) 04/01/2032 04/01/2022 HIB Vaccines Aged Out No longer eligi ble based on patient's age to complete this topic HPV Vaccines Aged Out No longer eligi ble based on patient's age to complete this topic Hepatitis A Vaccines Aged Out No long er eligible based on patient's age to complete this topic IPV Vaccines Aged Out No longer eligi ble based on patient's age to complete this topic MMR Vaccines Aged Out No longer eligi ble based on patient's age to complete this topic Meningococcal ACWY Vaccine Aged Out N o longer eligible based on patient's age to complete this topic Meningococcal B Vaccine Aged Out No l onger eligible based on patient's age to complete this topic RSV Immunization Patients Under 20 months Aged Out No longer eligible b ased on patient's age to complete this topic Varicella Vaccines Aged Out No longer eligible based on patient's age to complete this topic Procedures Procedure Name Priority Date/Time Associated Diagnosis Comments ECG 12-LEAD Routine 07/12/2025 10:02 AM EDT Chest pain, unspecified type BASIC METABOLIC PANEL Routine 07/09/2025 8:33 AM EDT Coronary artery disease involving chuloonawick heart, unspecified vessel or lesion type, unspecified whether angina present TRIGLYCERIDES Routine 07/09/2025 8:33 AM EDT Coronary artery disease involving ch[place]ick heart, unspecified vessel or lesion type, unspecified whether angina present LDL CHOLESTEROL, DIRECT Routine 07/09/2025 8:33 AM EDT Coronary artery disease involving ch[place]ick heart, unspecified vessel or lesion type, unspecified whether angina present CHOLESTEROL, TOTAL Routine 07/09/2025 8: 33 AM EDT Coronary artery disease involving ch[place]ick heart, unspecified vessel or lesion type, unspecified whether angina present HDL CHOLESTEROL Routine 07/09/2025 8:33 AM EDT Coronary artery disease involving chul[place]awick heart, unspecified vessel or lesion type, unspecified whether angina present ECG 12-LEAD Routine 05/28/2025 4:15 PM EDT Atrial flutter, unspecified type (CMS/HCC V24, CMS/HCC V28) from Last 3 Months Results * ECG 12 lead (07/12/2025 10:02 AM EDT) Only the most recent of2 resultswithin the time period is included. 07/12/2025 9:19 AM EDT Karla Veloz NP ECG ORDERABLES Final Result [facility] * Triglycerides (07/09/2025 8:33 AM EDT) Triglycerides 81 0 - 149 mg/dL [facility] 1 Blood Venous blood specimen / Unknown 07/09/2025 8:33 AM EDT 07/09/2025 Narrative [facility] 1 - 07/10/2025 4:06 AM EDT Performed at: 01 - [facility] [id number] Business Law Teacher: Sade Peace MD, Phone: [phone] Karla Veloz AWS SOLUTION ARCHITECT LAB BLOOD ORDERABLES Final Res ult Performing Organization Address [facility]/ZIP Co de Phone Number [facility] 1 * LDL cholesterol, direct (07/09/2025 8:33 AM EDT) LDL Chol. (Direct) 75 0 - 99 mg/dL [facility] 1 Blood Venous blood specimen / Unknown 07/09/2025 8:33 AM EDT 07/09/2025 Narrative [facility] 1 - 07/10/2025 8:07 AM EDT Performed at: [address] [place] [id number] Business Law Teacher: Sade Peace MD, Phone: [phone] Karla Veloz NP LAB BLOOD ORDERABLES Final Res ult Performing Organization Address [facility] de Phone Number [facility] 1 * HDL cholesterol (07/09/2025 8:33 AM EDT) HDL Cholesterol 45 >39 mg/dL [facility] 1 Blood Venous blood specimen / Unknown 07/09/2025 8:33 AM EDT 07/09/2025 Narrative [facility] 1 - 07/10/2025 4:06 AM EDT Performed at: [address] [place] [id number] Business Law Teacher: Sade Peace MD, Phone: [phone] Karla Veloz AWS [employer]UTION ARCHITECT LAB BLOOD ORDERABLES Final Res ult Performing Organization Address [facility] Co de Phone Number [facility] 1 * Cholesterol, total (07/09/2025 8:33 AM EDT) Cholesterol Total 139 100 - 199 mg/dL [facility] 1 Blood Venous blood specimen / Unknown 07/09/2025 8:33 AM EDT 07/09/2025 Narrative [facility] 1 - 07/10/2025 4:06 AM EDT Performed at: [facility] [place] [address] [place], [place] [id number] Business Law Teacher: Sade Peace MD, Phone: [phone] Karla Veloz NP LAB BLOOD ORDERABLES Final Res ult Performing Organization Address [facility] Co de Phone Number [facility] 1 * (ABNORMAL) Basic metabolic panel (07/09/2025 8:33 AM EDT) [facility] Glucose 112(H) 70 - 99 mg/dL [facility] 1 Blood Urea Nitrogen (BUN) 17 6 - 24 mg/dL [facility] 1 Creatinine 0.88 0.76 - 1.27 mg/dL [facility] 1 eGFR 102 >59 mL/min/1.7 3 [facility] 1 BUN/Creatinine Ratio 19 9 - 20 [facility] 1 Sodium 142 134 - 144 mmol/L [facility] 1 Potassium 4.6 3.5 - 5.2 mmol/L [facility] 1 Chloride 104 96 - 106 mmol/L [facility] 1 Carbon Dioxide 23 20 - 29 mmol/L [facility] 1 Calcium 9.6 8.7 - 10.2 mg/dL [facility] 1 Blood Venous blood specimen / Unknown 07/09/2025 8:33 AM EDT 07/09/2025 Narrative [facility] 1 - 07/10/2025 4:06 AM EDT Performed at: 01 - [facility] [address] [place], [place] [id number] Business Law Teacher: Sade Peace MD, Phone: [phone] Karla Veloz NP LAB BLOOD ORDERABLES Final Res ult Performing Organization Address [facility]/ZIP Co de Phone Number [facility] 1 from Last [address] [facility] Care Teams Leak Inspector Relationship Specialty Start Date End Date Geoff Cardona MD [facility] [address] [place] [address] [address] [place] [address] PCP - General Internal Medicine 05/06/25
== END 2025-07-27 15:03 | disposition home or self-care (01) ==
LOC: HO.HMCSH 14:57
PROVIDERS: PCP Internal Medicine; Visit Provider Physician Assistant Medical
DX: R07.89 Other chest pain (principal); E66.01 Morbid (severe) obesity due to excess calories; Z68.41 Body mass index [BMI] 40.0-44.9, adult; D64.9 Anemia, unspecified; Z09 Encounter for follow-up examination after completed treatment for conditions other than malignant neoplasm; K21.9 Gastro-esophageal reflux disease without esophagitis

== ENCOUNTER → 2025-07-27 14:57 | Outpatient (BNVA) | payer BC, SELFPAY | PROVIDERS: PCP Internal Medicine; Visit Provider Physician Assistant Medical | DX: I25.10 Atherosclerotic heart disease of native coronary artery without angina pectoris (principal); I48.0 Paroxysmal atrial fibrillation; E78.5 Hyperlipidemia, unspecified; I10 Essential (primary) hypertension; K21.9 Gastro-esophageal reflux disease without esophagitis; G47.33 Obstructive sleep apnea (adult) (pediatric); J44.9 Chronic obstructive pulmonary disease, unspecified; R07.89 Other chest pain; D64.9 Anemia, unspecified; E66.01 Morbid (severe) obesity due to excess calories; Z09 Encounter for follow-up examination after completed treatment for conditions other than malignant neoplasm; Z68.41 Body mass index [BMI] 40.0-44.9, adult | CPT/HCPCS: 96127 ==

== ENCOUNTER 2025-07-29 13:39 | Outpatient (AMB) | payer BC, SELFPAY ==
--- OUTSIDE RECORDS SUMMARY | 2025-07-26 09:10 | XMS_ITS | Encounter Summary ---
Author Organization [facility] Address [address] [place] [address] Care Team Providers Care Psych Tech Name Role Phone Geoff Cardona MD Primary Care Provider [phone]- [phone] Reason for Visit * Reason Comments Follow-up * Other Medical (Routine) - Authorized Specialty Diagnoses / Procedures Referred By Contac t Referred To Contact Cardiology Diagnoses [Per [facility]SO, Follow up in about 4 weeks (around 06/25/2025) for with me triage 4-6 wks.] 06/01/25,LMOM mld appt ltr- Meenu V Procedures OFFICE VISIT Geoff Cardona MD [address] [place] [address] Phone: tel: fax: Clive Gruber NP [address] [place] [address] [address] [place] [address] Phone: tel: fax: Referral ID Status Reason Start Date Expiration Date V isits Requested Visits Authorized [id number] Authorized 04/20/2025 04/20/2026 6 6 Encounter Details Date Type Department Care Team (Latest Contact Info) Description 07/26/2025 9:10 AM EST Office Visit [facility] [address] [place] [address] Clive Gruber NP [address] [place] [address] [address] [place] [address] Coronary artery disease involving [place] heart with angina pectoris, unspecified vessel or [...] from the original note were not included. [facility] PRIMARY EQUIPMENT TECHNICIAN: Hussein Gonzalez MD PCP: Geoff Cardona MD [...] He was sent by ambulance to the [facility] emergency department and admitted. The patient [...] Q-T Interval 382 QTc 426 P Wave [place] 30 R [place] 72 T [place] -53 ECG Interpretation Sinus rhythm with Premature [...] 0.88 07/09/2025 ASSESSMENT/PLAN: Coronary artery disease involving [place] heart, unspecified vessel or lesion type, unspecified [...] following today: CAD, a flutter, HLD, HTN [facility] [1] Outpatient Medications Marked as [...] by mouth 1 (one) time each day. atpewnzy-uvchvrgyx-bfelaauailojyk (CORTISPORIN) otic solution PLACE 5 DROPS INTO [...] 2:00 PM EDT Ancillary Procedure Pulmonology - [address] [phone] 12/30/2025 2:45 PM EDT Office Visit Pulmonology - [address] [phone] Salvador Shen MD [address] [facility] [place] [place] [phone] documented as of this encounter Visit Diagnoses Diagnosis Coronary artery disease involving [place] heart with angina pectoris, unspecified vessel or lesion type (CMS/[facility] V24)- Primary Atrial flutter, unspecified [...] chew. added in this encounter Care Teams Psych Tech Relationship Specialty Start Date End Date Geoff Cardona MD [facility] [address] [place] [address] [address] [place] [address] PCP - General Internal Medicine 05/06/25 documented as of this encounter
--- NOTE | 2025-07-29 13:44 | MHC.AMNUTRGE ---
VS Expanded 07/29/25 13:45 07/29/25 13:53 Height 5 ft 6 in 5 ft 6 in Weight 255 lb 4.725 oz 255 lb BMI 41.2 41.2 Intake Visit Reasons: Morbid (severe) obesity due to excess calories Allergies morphine Allergy (Unknown, Verified 07/27/25 15:32) Hives Nutrition Presentation Details: Pt presents for MNT for obesity Food frequency Fruits: 0-1 per day Vegetables 3 times a week Dairy 3-4 per day Fish 0 - once per week Beverages water, soda, tea, coffee Physical activity activities of daily living, active at work Alcohol/smoking:------ QUR-Itgqjma-Ya.Apolinaror Equation Height: 5 ft 6 in Weight: 255 lb Resting Metabolic Rate: 1937.65 Calculated Activity Level: Sedentary Calories Needed to Maintain Weight: 2325.18 Diagnosis Nutrition problem #1: overweight/obesity As related to (etiology) #1: diagnosis As evidenced by (sign/symptom) #1: knowledge deficit of diet REPLACED BY [facility] Medical History Hospital discharge follow-up Mild anemia Morbid obesity with BMI of 40.0-44.9, adult Lightheadedness Head and neck lymphadenopathy Multinodular goiter (nontoxic) Thyroid nodule Chronic sinus infection Lump in neck Undescended right testicle Paroxysmal atrial fibrillation IBS (irritable bowel syndrome) History of 2019 novel coronavirus disease (COVID-19) Lymphadenopathy Tendinitis Radiculopathy Chronic back pain Migraine headache Hyperlipidemia Hypertension Atypical chest pain Bronchomalacia Obstructive airway disease Paralyzed hemidiaphragm CAD (coronary artery disease) Cervical disc disease GERD (gastroesophageal reflux disease) COPD (chronic obstructive pulmonary disease) Asthma Elevated cholesterol Surgical History Hx of colonoscopy (~10/05/22) Hx of appendectomy Hx of myringotomy History of lobectomy of lung Hx of heart artery stent Family History Father BP (high blood pressure) CHF (congestive heart failure) Melanoma Mother Heart disease Social History Housing: House Alcohol intake: current Alcohol intake frequency: holidays/special occasions only Patient Tobacco Use Status: Former Tobacco user service: No Current occupational status: employed Cognitive needs: No Hearing needs: No Vision needs: Yes (rx glasses) Assessment & Plan Assessment & Plan (1) Morbid obesity with BMI of 40.0-44.9, adult: Code(s): E66.01 - Morbid (severe) obesity due to excess calories; Z68.41 - Body mass index [BMI] 40.0-44.9, adult Category: Medical Plan: current wt: 116 kg ( 08/17 ) est kcal needs as per MSJ: 2300 est protein needs as per 1 g/kg BW: 120 est fluid needs as per 30 ml/kg BW: 3500 Recommended fiber > 12 g /day and gradually increase up to 25-28 g /day or as tolerated Nutrition topics discussed : Reviewed (R), Pt verbalized understanding (V) , not applicable (N/A) R, : Healthy Plate Method Concept: R, V, N/A: Carbohydrates: food sources of carbohydrates, relationship of carbohydrates to blood glucose, fatty liver GI health. Recommended total amount of carbohydrates per meals and snack. Differences between simple carbohydrates and complex carbohydrates R, V, N/A: Lean protein foods including vegan , vegetarian sources of protein. Benefits of protein (including but not limited to healing, nutritional value , benefits in weight loss, glucose control R, V, N/A: Fats : Source of fats, benefits of fats. Difference between saturated and unsaturated fats. Saturated fats and its contribution to inflammation R, V, N/A: Fiber: food sources and role of fiber in the diet (including but not limited to its role as a prebiotic, benefits in constipation, role in IBS , role in glucose control and cholesterol level) R, : Hydration: role of hydration and prevention of dehydration or over hydration. Foods and water content. R, V, N/A: Vitamins and Minerals in foods and supplements R, V, N/A: Interpreting food labels, including serving size, macronutrients, vitamins, minerals, allergens, ingredient list , % daily value Patient Instructions: Follow healthy plate method at dinner, watch on amount of fats added to the meal (cheese, gravies, oils as example) Seen meal plan ideas Coding Level of Care Code Nutr Indiv Intake (92824) Diagnoses Morbid obesity with BMI of 40.0-44.9, adult E66.01; Z68.41 Time Spent (min) 30
[2025-07-29 13:45] VITALS: BMI 41.2
--- OUTSIDE RECORDS SUMMARY | 2025-07-29 16:40 | XMS_ITS | Clinical Summary ---
Author Organization [address] [facility] Address [address] [place] [address] Phone Care Team Providers Care Building Construction Professor Name Role Phone Geoff Cardona MD Primary Care Provider [phone] Allergies Active Allergy Reactions Criticality Noted Date [...] heart rate is adequate today. Recent ambulatory dental appliance fixer did not show any sustained arrhythmias. He [...] BP after nitroglycerin 120/70. 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, unspecified vessel or lesion type ([facility] V24) (Primary Dx); Atrial flutter, unspecified type ([facility] V24, CMS/HCC V28); Hyperlipidemia, unspecified hyperlipidemia type; Primary hypertension 07/19/2025 Telephone [facility] [address] [place] [address] Aditi Russo NP 07/12/2025 8:40 AM EDT Office Visit [facility] [address] [place] [address] Karla Veloz NP Chest pain, unspecified type (Primary Dx); 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, unspecified vessel or lesion type ([facility] V24) 06/28/2025 3:45 PM EDT Office Visit Pulmonology - [place] [address] [facility] [address] [place] [phone] Salvador Shen MD Moderate asthma without complication, unspecified whether persistent (Primary Dx); FOX (obstructive sleep apnea); Morbid obesity ([facility] V24, [facility] V28) 05/28/2025 3:10 PM EDT Office Visit [facility] [address] [place] [phone] Karla Veloz NP Coronary artery disease involving little shell tribe heart, unspecified vessel or lesion type, unspecified whether angina present (Primary Dx); Atrial flutter, unspecified type ([facility] V24, CMS/[facility] V28); Hyperlipidemia, unspecified hyperlipidemia type; Primary hypertension from Last 3 Months Surgical History Surgery Date Site/Laterality Comments ANGIOPLASTY PROCEDURE: HISTORICAL ANGIOPLASTY W/STENT CARDIAC CATHETERIZATION PROCEDURE: HISTORICAL CARDIAC CATH CARDIAC CATH DONE ON 07/15/2025 AT [facility] INDICATIONS: Angina. Medical History Medical History Date [...] 12/30/2025 2:00 PM EDT Ancillary Procedure Pulmonology [address] [phone] 12/30/2025 2:45 PM EDT Office Visit Pulmonology [address] [phone] Salvador Shen MD [address] [place] [phone] Health Maintenance Due Date Last Done Comments [...] 2025 02/04/2021, 01/07/2021 Influenza Vaccine (#1) 2025 2, 07/26/2021, 06/06/2017 Hypertension/CHF/CAD Annual BMP Blood Test [...] 8:33 AM EDT Coronary artery disease involving little shell tribe heart, unspecified vessel or lesion type, unspecified whether angina present TRIGLYCERIDES Routine 07/09/2025 8:33 AM EDT Coronary artery disease involving little shell tribe heart, unspecified vessel or lesion type, unspecified whether angina present LDL CHOLESTEROL, DIRECT Routine 07/09/2025 8:33 AM EDT Coronary artery disease involving little shell tribe heart, unspecified vessel or lesion type, unspecified whether angina present CHOLESTEROL, TOTAL Routine 07/09/2025 8: 33 AM EDT Coronary artery disease involving little shell tribe heart, unspecified vessel or lesion type, unspecified whether angina present HDL CHOLESTEROL Routine 07/09/2025 8:33 AM EDT Coronary artery disease involving little shell tribe heart, unspecified vessel or lesion type, unspecified whether angina present ECG 12-LEAD Routine 05/28/2025 4:15 PM EDT Atrial flutter, unspecified type (CMS/HCC V24, CMS/HCC V28) from Last 3 Months Results * ECG 12 lead (07/12/2025 10:02 AM EDT) Only the most recent of2 resultswithin the time period is included. 07/12/2025 9:19 AM EDT us Karla Veloz NP ECG ORDERABLES Final Result [facility] * Triglycerides (07/09/2025 8:33 AM EDT) Triglycerides 81 0 - 149 mg/dL [facility] 1 Blood Venous blood specimen / Unknown 07/09/2025 8:33 AM EDT 07/09/2025 Narrative [facility] 1 - 07/10/2025 4:06 AM EDT Performed at: 01 - [facility] [id number] Supply Chain Systems Manager: Sade Peace MD, Phone: [phone] us Karla Veloz NP LAB BLOOD ORDERABLES Final Res ult [facility] 1 * LDL cholesterol, direct (07/09/2025 8:33 AM EDT) LDL Chol. (Direct) 75 0 - 99 mg/dL [facility] 1 Blood Venous blood specimen / Unknown 07/09/2025 8:33 AM EDT 07/09/2025 Narrative [facility] 1 - 07/10/2025 8:07 AM EDT Performed at: [facility] [id number] Supply Chain Systems Manager: Sade Peace MD, Phone: [phone] Karla Veloz NP LAB BLOOD ORDERABLES Final Res ult Performing Organization Address City/[facility]/ZIP Co de Phone Number [facility] 1 * HDL cholesterol (07/09/2025 8:33 AM EDT) HDL Cholesterol 45 >39 mg/dL [facility] 1 Blood Venous blood specimen / Unknown 07/09/2025 8:33 AM EDT 07/09/2025 Narrative [facility] 1 - 07/10/2025 4:06 AM EDT Performed at: [address] [id number] Supply Chain Systems Manager: Sade Peace MD, Phone: [phone] Karla Veloz NP LAB BLOOD ORDERABLES Final Res ult [facility] 1 * Cholesterol, total (07/09/2025 8:33 AM EDT) Cholesterol Total 139 100 - 199 mg/dL [facility] 1 Blood Venous blood specimen / Unknown 07/09/2025 8:33 AM EDT 07/09/2025 Narrative [facility] 1 - 07/10/2025 4:06 AM EDT Performed at: [facility] [id number] Supply Chain Systems Manager: Sade Peace MD, Phone: [phone] Karla Veloz NP LAB BLOOD ORDERABLES Final Res ult [facility] 1 * (ABNORMAL) Basic metabolic panel (07/09/2025 8:33 AM EDT) Glucose 112(H) 70 - 99 mg/dL [facility] [...] AM EDT Performed at: 01 - [facility] [address] [id number] Supply Chain Systems Manager: Sade Peace MD, Phone: [phone] us Karla Veloz BOARD MEMBER LAB BLOOD ORDERABLES Final Res ult [facility] 1 from Last 3 Months Insurance [facility] Care Teams Building Construction Professor Relationship Specialty Start Date End Date Geoff Cardona MD [address] [place] [id number] PCP - General Internal Medicine 05/06/25
[2025-08-03 13:40] VITALS: BMI 41.2
== END 2025-07-29 14:36 | disposition home or self-care (01) ==
LOC: HO.ENCR 13:40
PROVIDERS: PCP Internal Medicine; Visit Provider Dietitian, Registered
DX: E66.01 Morbid (severe) obesity due to excess calories (principal); Z68.41 Body mass index [BMI] 40.0-44.9, adult

== ENCOUNTER → 2025-07-29 13:39 | Outpatient (BNVA) | payer BC, SELFPAY | PROVIDERS: PCP Internal Medicine; Visit Provider Dietitian, Registered | DX: E66.01 Morbid (severe) obesity due to excess calories (principal); Z68.41 Body mass index [BMI] 40.0-44.9, adult | CPT/HCPCS: 97802 ==